=== PATIENT | male | born 1985 | race Caucasian/White ===

== ENCOUNTER 2020-09-18 09:09 | Outpatient (REF) | payer OTHER, SELFPAY | END 2020-09-18 09:10 | disposition home or self-care (01) | LOC: HO.LAB 09:09 | PROVIDERS: Visit Provider Internal Medicine | DX: Z20.828 Contact with and (suspected) exposure to other viral communicable diseases (principal) | CPT/HCPCS: C9803; U0003 ==

== ENCOUNTER → 2020-10-19 15:25 | Outpatient (BNV) | payer OTHER, SELFPAY | PROVIDERS: PCP Internal Medicine; Visit Provider Internal Medicine Medical Oncology | DX: D45 Polycythemia vera (principal) | CPT/HCPCS: 99212; 99213 ==

== ENCOUNTER 2020-12-31 11:31 | Outpatient (REF) | payer OTHER, SELFPAY ==
[2020-12-31 14:57] LABS: Eosinophils Absolute Auto 0.1 X10*3/uL (0.0-0.4); Hemoglobin 14.7 g/dl (14.0-18.0); Lymphocytes Percent Auto 29.9 % (20-40); MANUAL DIFF FLAG SCAN; SCAN SMEAR FLAG 1
[2020-12-31 14:59] LABS: Basophils Percent Auto 0.3 % (0-2); Eosinophils Percent Auto 1.5 % (0-4); Hematocrit 45.6 % (42-52); Imm Gran Abs Auto 0.04 X10*3/uL (0.00-0.03); Imm Gran Pct Auto 0.5 % (0.0-0.4); Lymphocytes Absolute Auto 2.3 X10*3/uL (1.2-4.9); Mean Corpuscular HGB Conc 32.2 g/dl (31.0-36.0); Mean Corpuscular Hemoglobin 25.3 pg (27.0-33.0); Mean Corpuscular Volume 78.4 fL (80-98); Mean Platelet Volume 12.6 fL (9.4-12.4); Monocytes Absolute Auto 0.6 X10*3/uL (0.1-1.2); Monocytes Percent Auto 7.2 % (2-11); Neutrophils Absolute Auto 4.7 X10*3/uL (2.0-8.3); Neutrophils Percent Auto 60.6 % (45-73); Platelet Count 229 X10*3/uL (160-400); Red Blood Count 5.82 X10*6/uL (4.60-5.80); Red Cell Distribution Width 15.8 % (11.0-16.0); White Blood Count 7.8 X10*3/uL (4.8-10.8)
[2020-12-31 15:00] LABS: PLT ABN DIST 1
[2020-12-31 15:25] LABS: Anion Gap 16 (12-20); Blood Urea Nitrogen 11 mg/dL (9-16); Calcium 9.6 mg/dL (8.4-10.2); Carbon Dioxide 22 mmol/L (22-29); Chloride 107 mmol/L (96-108); Cholesterol 213 mg/dL; Estimated Glomerular Filt Rate > 60; Glucose Random 118 mg/dL (60-115); HDL Cholesterol 44 mg/dL; Iron 58 mcg/dL (45-160); LDL Cholesterol Calculated 118 mg/dl; Percent Iron Saturation 13 % (15-50); Potassium 4.4 mmol/L (3.3-5.1); Sodium 141 mmol/L (135-145); Total Iron Binding Capacity 437 mcg/dL (228-428); Triglycerides 258 mg/dL; Unsaturated Iron Binding 379 ug/dL
[2020-12-31 15:47] LABS: Ferritin 8 ng/mL (20-250)
[2021-01-01 09:39] LABS: Vitamin B12 238 pg/mL (200-900)
[2021-01-04 11:27] LABS: Vitamin D 25-OH, D2 <4 ng/mL; Vitamin D 25-OH, D3 20 ng/mL; Vitamin D 25-OH, Total 20 ng/mL (30-100)
== END 2020-12-31 11:32 | disposition home or self-care (01) ==
LOC: HO.HMGCLDS 11:31
PROVIDERS: PCP Internal Medicine; Visit Provider Internal Medicine
DX: G43.909 Migraine, unspecified, not intractable, without status migrainosus (principal); J45.909 Unspecified asthma, uncomplicated; R53.83 Other fatigue; R10.13 Epigastric pain; K58.9 Irritable bowel syndrome, unspecified
CPT/HCPCS: 36415; 80048; 80061; 82306; 82607; 82728; 83540; 85025

== ENCOUNTER 2021-07-08 15:31 | Outpatient (REF) | payer OTHER, SELFPAY | END 2021-07-08 15:32 | disposition home or self-care (01) | LOC: HO.LAB 15:31 | PROVIDERS: PCP Internal Medicine; Visit Provider Internal Medicine | DX: Z20.822 Contact with and (suspected) exposure to COVID-19 (principal) | CPT/HCPCS: C9803; U0003; U0005 ==

== ENCOUNTER 2021-07-14 15:23 | Outpatient (REF) | payer OTHER, SELFPAY ==
[2021-07-14 17:42] LABS: Influenza A PCR NEGATIVE (Negative); Influenza B PCR NEGATIVE (Negative); Resp Syncy Virus RNA Qual PCR NEGATIVE (Negative); SARS COV2 PCR INHOUSE NEGATIVE (Negative)
== END 2021-07-14 15:24 | disposition home or self-care (01) ==
LOC: HO.LAB 15:23
PROVIDERS: Visit Provider Internal Medicine
DX: Z20.822 Contact with and (suspected) exposure to COVID-19 (principal); R43.9 Unspecified disturbances of smell and taste
CPT/HCPCS: 0241U; 36415

== ENCOUNTER 2021-12-19 11:36 | Emergency (ER) | payer OTHER, SELFPAY ==
--- NOTE | ~2021-12-19 | XR_ITS ---
EXAMINATION: XR SHOULDER, RIGHT CLINICAL INFORMATION: Shoulder injury COMPARISON: CT 05/14/2017 TECHNIQUE: Three views of the right shoulder. FINDINGS: No visible acute fracture or dislocation.. Glenohumeral and acromioclavicular alignment is anatomic with normal joint space. No abnormal soft tissue calcifications. XR/XR shoulder RT min 2V IMPRESSION: No evidence of acute osseous abnormality.
[2021-12-19 12:47] VITALS: BP 137/97; PULSE 72; RESP 18; TEMP 37; O2SAT 99; BMI 29.1
--- NOTE | 2021-12-19 13:42 | ED.EXTPRO ---
HPI - Extremity Problem General Chief complaint: Extremity Injury, Upper Stated complaint: shoulder injury - work related Time Seen by Provider: 12/19/21 14:19 Source: patient Mode of arrival: ambulatory Limitations: no limitations History of Present Illness HPI Narrative: 36-year-old healthy male presents to ED for right shoulder pain. Patient states he was throwing a trash can full of garbage and then he heard a pop in his right shoulder pain. Patient states this occurred around 07:30. Denies any blunt trauma to right lower extremity pain. Patient states able to move right upper extremity but with pain. Patient states no swelling, redness, fever, chills, tingling, or numbness. Related Data Home Medications Medication Instructions Recorded Confirmed flu vac qs 2019(4 yr up)CD(PF) ml IM 08/13/20 02/18/21 pneumococcal 23-nikki ps vaccine 25 IM 08/13/20 02/18/21 mcg/0.5 mL injection syringe amitriptyline 100 mg tablet 100 mg PO BEDTIME 11/19/20 04/19/21 Previous Rx's Medication Instructions Recorded cholecalciferol (vitamin D3) 25 25 mcg PO DAILY 90 Days #90 cap 01/10/21 mcg (1,000 unit) capsule ferrous sulfate 324 mg (65 mg 324 mg PO Q OTHER DAY 90 Days #45 01/10/21 iron) tablet,delayed release tab Blood pressure machine #1 ea 02/18/21 albuterol sulfate 90 mcg/actuation 2 puff PO Q4H PRN 30 Days #8.5 g 02/18/21 aerosol inhaler sumatriptan succinate 50 mg tablet 50 mg PO BID PRN 90 Days #30 tab 02/18/21 fluticasone 250 mcg-salmeterol 50 1 inh INHALATION BID 30 Days #60 ea 05/12/21 mcg/dose blistr powdr for inhalation (Wixela Inhub) montelukast 10 mg tablet 10 mg PO DAILY 90 Days #90 tab 05/12/21 omeprazole 20 mg capsule,delayed 20 mg PO DAILY 90 Days #90 cap 05/12/21 release cyclobenzaprine 10 mg tablet 10 mg PO TID PRN #21 tab 12/19/21 naproxen 500 mg tablet 500 mg PO BID PRN #20 tab 12/19/21 Allergies Allergy/AdvReac Type Severity Reaction Status Date / Time No Known Allergies Allergy Verified 07/14/21 13:32 Review of Systems Review of Systems: Right shoulder pain. Hearing popping shoulder Yes all other systems are reviewed and are negative [facility] Past Medical History Medical History Asthma Dyspepsia IBS (irritable bowel syndrome) Migraine headache Polycythemia vera Surgical History History of ear surgery Family History Family History Father HTN (hypertension) Mother Cancer Diabetes mellitus Maternal Grandmother Pancreatic cancer Paternal Grandfather Polycythemia Sister No problems noted. Sister No problems noted. Daughter No problems noted. Social History Social History Alcohol intake: current Alcohol intake frequency: holidays/special occasions only Advance Directives: No Advance Directives Information Provided: No Physical Exam Vital Signs: Vital Signs: Last Vital Signs Temp 98.6 F 12/19/21 12:47 Pulse 72 12/19/21 12:47 Resp 18 12/19/21 12:47 BP 137/97 H 12/19/21 12:47 Pulse Ox 99 12/19/21 12:47 BMI result Body Mass Index 29.1 Const: General: cooperative, healthy appearing, comfortable, no acute distress, well developed, alert and awake Orientation/consciousness: patient oriented x3 HENMT: Head: Yes normal to inspection, Yes No palpable skull fracture present, Yes normocephalic and Yes atraumatic Eyes: General: appearance normal, both eyes and all related structures Neck: Neck: Yes normal visual inspection, Yes full ROM, Yes no lymphadenopathy, Yes no meningeal signs, Yes trachea midline, Yes supple, No anterior neck swelling and No tender Chest: Chest palpation & inspection: normal inspection of the chest and normal palpation of entire chest wall Resp: Effort & Inspection: normal respiratory effort and able to speak in complete sentences Auscultation: clear to auscultation bilaterally Cardio: Jugular venous distension: no JVD Heart sounds: S1 normal heart sound present and S2 normal heart sound present GI: Inspection: Yes normal to inspection and No abdominal wall ecchymosis Palpation (GI): Soft to palpation, not firm, nontender, no guarding and not rigid : General: No CVA tenderness and Yes no CVA tenderness Back/Spine/Pelvis: Back: no CVA tenderness, No CVA tenderness and No back tenderness Skin: General skin exam: no rashes or lesions noted and elasticity normal Neuro: General: patient oriented x3, gait normal and no meningeal signs Cranial nerves: Yes CN's II-XII intact bilaterally Extrem: General: Yes normal to inspection and Yes full ROM Shoulder/upper arm images: 1. Positive for tenderness on palpation and range of motion. Patient has complete range of motion of shoulder. Negative for any swelling, erythema, ecchymosis, or deformity. Right upper extremity motor/neuro/vascular exam intact Psych: Appearance: grossly normal, well kempt and not disheveled Course Course Course Narrative: Patient sent for shoulder x-ray. Reevaluation(s) Reevaluation #1: X-ray normal negative for any fracture or dislocation. Patient discharged with pain medication and muscle relaxer told to follow up with her connection. Time: 14:20 MDM - Extremity (Nontraumatic) MDM Narrative Medical decision making narrative: Shoulder sprain Discharge Plan Discharge Clinical Impression: Shoulder sprain Patient Disposition: Home, Self-Care Instructions: Shoulder Sprain (ED) Additional Instructions: Shoulder x-ray came back normal and negative for any fracture or dislocation. Due to you hearing popping sound will recommend follow-up with primary care provider for MRI if indicated to evaluate for possible shoulder muscle tear. Due to also follow up with work connection. Return to the ED immediately for any right upper extremity swelling, redness, bluish black discoloration, decreased range of motion, coolness, fever, chills, tingling, paralysis, or any other concerning symptoms. Prescriptions: New naproxen 500 mg tablet 500 mg PO BID PRN (Reason: pain) Qty: 20 0RF cyclobenzaprine 10 mg tablet 10 mg PO TID PRN (Reason: muscle spasm) Qty: 21 0RF Rx Instructions: side effect is drowsiness. Do not take at work or while driving. No Action ferrous sulfate 324 mg (65 mg iron) tablet,delayed release (DR/EC) 324 mg PO Q OTHER DAY 90 Days Qty: 45 0RF cholecalciferol (vitamin D3) 25 mcg (1,000 unit) capsule 25 mcg PO DAILY 90 Days Qty: 90 0RF (DME) Blood pressure machine Regular See Rx Instructions .Route .MEDSUPPLY Qty: 1 0RF Rx Instructions: As directed omeprazole 20 mg capsule,delayed release(DR/EC) 20 mg PO DAILY 90 Days Qty: 90 0RF montelukast 10 mg tablet 10 mg PO DAILY 90 Days Qty: 90 0RF fluticasone propion-salmeterol [Wixela Inhub] 250-50 mcg/dose blister with device 1 inh inhalation BID 30 Days Qty: 60 1RF Flucelvax Quad [id number] (PF) 60 mcg (15 mcg x 4)/0.5 mL syringe IM 0RF Pneumovax-23 25 mcg/0.5 mL syringe IM 0RF amitriptyline 100 mg tablet 100 mg PO BEDTIME 0RF sumatriptan succinate 50 mg tablet 50 mg PO BID PRN (Reason: Headache) 90 Days Qty: 30 0RF albuterol sulfate 90 mcg/actuation HFA aerosol inhaler 2 puff PO Q4H PRN (Reason: Shortness Of Breath) 30 Days Qty: 8.5 4RF Referrals: [facility] [Provider Group] - 2 days ([place] pain from work.) Stand Alone Forms: Work/School Release Interventions: ED Discharge Assessment Last Done: 12/19/21 14:31 Discharge Date/Time: 12/19/21 14:31 Print Language: Kazakh
== END 2021-12-19 14:31 | disposition home or self-care (01) ==
PROVIDERS: Emergency Provider Emergency Medicine; PCP Internal Medicine
DX: S43.401A Unspecified sprain of right shoulder joint, initial encounter (principal); X50.0XXA Overexertion from strenuous movement or load, initial encounter; Y93.89 Activity, other specified; Y92.213 High school as the place of occurrence of the external cause; Y99.0 Civilian activity done for income or pay
CPT/HCPCS: 73030; 99283

== ENCOUNTER 2022-08-08 08:34 | Outpatient (REF) | payer OTHER, SELFPAY ==
[2022-08-08 11:29] LABS: MANUAL DIFF FLAG NO
[2022-08-08 11:44] LABS: Basophils Percent Auto 0.3 % (0-2); Eosinophils Absolute Auto 0.1 X10*3/uL (0.0-0.4); Eosinophils Percent Auto 1.9 % (0-4); Hemoglobin 16.9 g/dl (14.0-18.0); Imm Gran Abs Auto 0.04 X10*3/uL (0.00-0.03); Imm Gran Pct Auto 0.6 % (0.0-0.4); Lymphocytes Absolute Auto 2.3 X10*3/uL (1.2-4.9); Lymphocytes Percent Auto 36.2 % (20-40); Mean Corpuscular HGB Conc 34.5 g/dl (31.0-36.0); Mean Corpuscular Hemoglobin 29.7 pg (27.0-33.0); Mean Corpuscular Volume 86.1 fL (80.0-98.0); Mean Platelet Volume 12.2 fL (9.4-12.4); Monocytes Absolute Auto 0.6 X10*3/uL (0.1-1.2); Monocytes Percent Auto 9.4 % (2-11); Neutrophils Absolute Auto 3.3 x10*3/uL (2.0-8.3); Neutrophils Percent Auto 51.6 % (45-73); Platelet Count 246 X10*3/uL (160-400); Red Blood Count 5.69 X10*6/uL (4.60-5.80); White Blood Count 6.4 X10*3/uL (4.8-10.8)
[2022-08-08 12:13] LABS: Alanine Aminotransferase 22 U/L (0-40); Albumin Level 4.7 g/dL (3.5-5.0); Alkaline Phosphatase 43 U/L (39-117); Anion Gap 20 (12-20); Aspartate Amino Transferase 24 U/L (5-37); Bilirubin Total 0.6 mg/dL (0.0-1.0); Blood Urea Nitrogen 11 mg/dL (9-16); Calcium 9.9 mg/dL (8.4-10.2); Carbon Dioxide 22 mmol/L (22-29); Chloride 104 mmol/L (96-108); Cholesterol 219 mg/dL; Estimated Glomerular Filt Rate > 60; Glucose Fasting 130 mg/dL (60-99); HDL Cholesterol 51 mg/dL; LDL Cholesterol Calculated 104 mg/dl; Potassium 4.7 mmol/L (3.3-5.1); Sodium 141 mmol/L (135-145); Total Protein 7.4 g/dL (6.5-8.0); Triglycerides 320 mg/dL
[2022-08-08 12:18] LABS: TSH reflex Free T4 1.18 uIU/mL (0.32-4.0)
== END 2022-08-08 08:35 | disposition home or self-care (01) ==
LOC: HO.HMGCLDS 08:34
PROVIDERS: PCP Internal Medicine; Visit Provider Internal Medicine
DX: Z00.01 Encounter for general adult medical examination with abnormal findings (principal); R10.13 Epigastric pain; K58.9 Irritable bowel syndrome, unspecified; J45.40 Moderate persistent asthma, uncomplicated; G43.C1 Periodic headache syndromes in child or adult, intractable; E66.3 Overweight
CPT/HCPCS: 36415; 80053; 80061; 84443; 85025

== ENCOUNTER 2022-11-28 08:00 | Outpatient (REF) | payer OTHER, SELFPAY ==
[2022-11-28 11:29] LABS: MANUAL DIFF FLAG NO
[2022-11-28 11:40] LABS: Basophils Percent Auto 0.4 % (0-2); Eosinophils Absolute Auto 0.2 X10*3/uL (0.0-0.4); Hematocrit 50.8 % (42.0-52.0); Hemoglobin 17.5 g/dl (14.0-18.0); Imm Gran Abs Auto 0.05 X10*3/uL (0.00-0.03); Imm Gran Pct Auto 0.7 % (0.0-0.4); Lymphocytes Absolute Auto 2.4 X10*3/uL (1.2-4.9); Lymphocytes Percent Auto 31.4 % (20-40); Mean Corpuscular HGB Conc 34.4 g/dl (31.0-36.0); Mean Corpuscular Hemoglobin 30.2 pg (27.0-33.0); Mean Corpuscular Volume 87.7 fL (80.0-98.0); Mean Platelet Volume 12.3 fL (9.4-12.4); Monocytes Absolute Auto 0.7 X10*3/uL (0.1-1.2); Monocytes Percent Auto 8.9 % (2-11); Neutrophils Absolute Auto 4.3 x10*3/uL (2.0-8.3); Neutrophils Percent Auto 55.6 % (45-73); Platelet Count 222 X10*3/uL (160-400); Red Blood Count 5.79 X10*6/uL (4.60-5.80); Red Cell Distribution Width 12.3 % (11.0-16.0); White Blood Count 7.7 X10*3/uL (4.8-10.8)
== END 2022-11-28 08:01 | disposition home or self-care (01) ==
LOC: HO.HMGCLDS 08:00
PROVIDERS: PCP Internal Medicine; Visit Provider Internal Medicine
DX: R73.9 Hyperglycemia, unspecified (principal); J45.40 Moderate persistent asthma, uncomplicated; D45 Polycythemia vera; G43.909 Migraine, unspecified, not intractable, without status migrainosus
CPT/HCPCS: 36415; 85025

== ENCOUNTER 2022-12-21 08:07 | Outpatient (REF) | payer OTHER, SELFPAY ==
[2022-12-21 12:08] LABS: Estimated Average Glucose 105 mg/dL; Hemoglobin A1c % 5.3 %
[2022-12-21 12:29] LABS: Alanine Aminotransferase 23 U/L (0-40); Albumin Level 4.3 g/dL (3.5-5.0); Alkaline Phosphatase 38 U/L (39-117); Anion Gap 13 (12-20); Aspartate Amino Transferase 21 U/L (5-37); Bilirubin Total 1.2 mg/dL (0.0-1.0); Blood Urea Nitrogen 13 mg/dL (9-16); Carbon Dioxide 23 mmol/L (22-29); Chloride 107 mmol/L (96-108); Estimated Glomerular Filt Rate > 60; Glucose Fasting 131 mg/dL (60-99); Potassium 4.1 mmol/L (3.3-5.1); Sodium 139 mmol/L (135-145); Total Protein 6.7 g/dL (6.5-8.0)
== END 2022-12-21 08:08 | disposition home or self-care (01) ==
LOC: HO.HMGCLDS 08:07
PROVIDERS: PCP Internal Medicine; Visit Provider Internal Medicine
DX: D45 Polycythemia vera (principal); G43.909 Migraine, unspecified, not intractable, without status migrainosus; J45.40 Moderate persistent asthma, uncomplicated; R73.9 Hyperglycemia, unspecified
CPT/HCPCS: 36415; 80053; 83036

== ENCOUNTER 2023-06-04 14:38 | Outpatient (REF) | payer OTHER, SELFPAY ==
[2023-06-04 14:48] LABS: MANUAL DIFF FLAG NO
[2023-06-04 15:02] LABS: Basophils Percent Auto 0.3 % (0-2); Eosinophils Absolute Auto 0.4 X10*3/uL (0.0-0.4); Eosinophils Percent Auto 3.1 % (0-4); Hematocrit 47.6 % (42.0-52.0); Hemoglobin 16.7 g/dl (14.0-18.0); Imm Gran Abs Auto 0.05 X10*3/uL (0.00-0.03); Imm Gran Pct Auto 0.4 % (0.0-0.4); Lymphocytes Absolute Auto 3.1 X10*3/uL (1.2-4.9); Lymphocytes Percent Auto 26.4 % (20-40); Mean Corpuscular HGB Conc 35.1 g/dl (31.0-36.0); Mean Corpuscular Hemoglobin 30.4 pg (27.0-33.0); Mean Corpuscular Volume 86.7 fL (80.0-98.0); Mean Platelet Volume 11.6 fL (9.4-12.4); Monocytes Absolute Auto 0.8 X10*3/uL (0.1-1.2); Monocytes Percent Auto 6.7 % (2-11); Neutrophils Absolute Auto 7.3 x10*3/uL (2.0-8.3); Neutrophils Percent Auto 63.1 % (45-73); Platelet Count 290 X10*3/uL (160-400); Red Blood Count 5.49 X10*6/uL (4.60-5.80); Red Cell Distribution Width 12.9 % (11.0-16.0); White Blood Count 11.5 X10*3/uL (4.8-10.8)
[2023-06-05 01:57] LABS: Alanine Aminotransferase 28 U/L (0-40); Albumin Level 4.7 g/dL (3.5-5.0); Alkaline Phosphatase 45 U/L (39-117); Anion Gap 14 (12-20); Aspartate Amino Transferase 20 U/L (5-37); Bilirubin Direct 0.2 mg/dL (0.0-0.5); Bilirubin Total 0.5 mg/dL (0.0-1.0); Blood Urea Nitrogen 11 mg/dL (9-16); Calcium 9.6 mg/dL (8.4-10.2); Carbon Dioxide 23 mmol/L (22-29); Chloride 109 mmol/L (96-108); Estimated Glomerular Filt Rate 60; Glucose Random 114 mg/dL (60-115); Potassium 4.1 mmol/L (3.3-5.1); Sodium 142 mmol/L (135-145); Total Protein 7.5 g/dL (6.5-8.0)
[2023-06-08 13:18] LABS: Anti Nuclear Antibody Screen NEGATIVE (NEGATIVE)
== END 2023-06-04 14:39 | disposition home or self-care (01) ==
LOC: HO.LAB 14:38
PROVIDERS: Visit Provider Physician Assistant Medical
DX: L93.0 Discoid lupus erythematosus (principal)
CPT/HCPCS: 36415; 80048; 80076; 85025; 86038

== ENCOUNTER 2023-06-06 14:48 | Outpatient (AMB) | payer OTHER, SELFPAY ==
--- NOTE | 2023-06-06 14:52 | A.OFFPC_ITS ---
Vital Signs 06/06/23 14:53 Height 5 ft 5 in Weight 176 lb 4 oz BMI 29.3 BP 142/94 H Blood Pressure Location Lt brachial Position Sitting Pulse 101 H Pulse Source Pulse Oximeter Pulse Oximetry (%) 98 Oxygen Delivery Method Room Air Intake Visit Reasons: 3m follow up Allergies No Known Allergies Allergy (Verified 06/06/23 14:53) Medication List - Last Reconciled 06/06/23 by Linda Singh MD albuterol sulfate 90 mcg/actuation (Ventolin HFA) 1 inh inhalation QID PRN 30 days amitriptyline 100 mg PO BEDTIME 90 days [Blood pressure machine As directed] hydrochlorothiazide 25 mg PO DAILY 90 days hydrocortisone 2.5% 1 appl topical BID PRN 30 days mometasone-formoterol 200-5 mcg/actuation (Dulera) 2 puffs inhalation Q12H 30 days montelukast 10 mg PO DAILY 90 days omeprazole 20 mg PO DAILY 90 days sumatriptan succinate 50 mg PO BID PRN 90 days Tobacco use date assessed: 06/06/23 Dental Screening Dental Screen Date: 06/06/23 Did you have a dental visit in the last 12 months?: Yes Did you have a dental problem in the last 6 months where you did not have access to dental care?: No Was dental information given to patient?: No HPI 3m follow up HPI Details Patient is a 38-year-old male came in today for his regular follow-up appointment Blood pressure continued to be elevated it was 172 systolic on 14th of this month when he visited Hematology for the management of polycythemia vera Today it is 142/94 with heart rate of 101. Currently patient is taking hydrochlorothiazide 25 mg, I am stopping that he is to start taking atenolol chlorthalidone 50-25 mg daily. Patient is to continue monitoring blood pressure at home and keep a log He will return in 7 days for follow-up. Asthma is stable patient is on montelukast and Dulera. Headaches are stable with amitriptyline 100 mg at night and sumatriptan as needed. GERD is stable with omeprazole. [facility] Medical History Asthma Dyspepsia IBS (irritable bowel syndrome) Migraine headache Polycythemia vera Surgical History History of ear surgery Family History Father HTN (hypertension) Mother Cancer Diabetes mellitus Maternal Grandmother Pancreatic cancer Paternal Grandfather Polycythemia Sister No problems noted. Sister No problems noted. Daughter No problems noted. Social History Household Members: Spouse Housing: Apartment Are you a primary personal care service provider to a significant other at home: No Do you presently have visiting nurse or other home services: No Alcohol intake: current Alcohol intake frequency: holidays/special occasions only Patient Tobacco Use Status: Never used Tobacco e-Cigarette/Vaping Use: Never Used Second Hand Smoke Exposure: No service: No Current occupational status: employed Cognitive needs: No Hearing needs: No Vision needs: No Questionnaire PHQ-9 Over the last 2 weeks, how often have you been bothered by any of the following problems? 1. Little interest or pleasure in doing things: not at all 2. Feeling down, depressed, or hopeless: not at all 3. Trouble falling or staying asleep, or sleeping too much: several days 4. Feeling tired or having little energy: not at all 5. Poor appetite or overeating: not at all 6. Feeling bad about yourself - or that you are a failure or have let yourself or your family down: not at all 7. Trouble concentrating on things, such as reading the newspaper or watching television: not at all 8. Moving or speaking so slowly that other people could have noticed. Or the opposite - being so fidgety or restless that you have been moving around a lot more than usual: not at all 9. Thoughts that you would be better off or of hurting yourself in some way: not at all Total score: 1 Depression Screening Interpretation: Negative 12723 - PHQ-9 Billing: Yes Source: Developed by Drs. Agustin Lemus, Joslyn Bailey, Lionel Brothers and colleagues, with an educational juan daniel from [employer]. Thrive Questionnaire Date Thrive assessed: 02/01/22 AUDIT C Alcohol Use Questionnaire (AUDIT-C) 1. How often do you have a drink containing alcohol?: Monthly or less 2. How many drinks containing alcohol do you have on a typical day when you are drinking?: 1 or 2 3. How often do you have six or more drinks on one occasion?: Never Total Score: 1 Score Reviewed/Action Taken: Yes BONNIE-7 AMB Questionnaire BONNIE-7 Date BONNIE - 7 assessed: 02/01/22 Feeling nervous, anxious, or on edge: 0 = Not at all Not being able to stop or control worryin = Not at all Worrying too much about different things: 0 = Not at all Trouble relaxin = Not at all Being so restless that it is hard to sit still: 0 = Not at all Becoming easily annoyed or irritable: 0 = Not at all Feeling afraid as if something awful might happen: 0 = Not at all Total BONNIE-7 score (0-4 normal; 5-9 mild; 10-14 moderate; 15-21 severe): 0 Source: Developed by Drs. Agustin Lemus, Joslyn Bailey, Lionel Brothers and colleagues, with an educational juan daniel from [employer]. BONNIE-7 Assessment Billing BONNIE-7 Assessment Tool: BONNIE-7 Assessment 86818 Review of Systems Const Denies chills and Denies fever(s) ENT Denies epistaxis and Denies nasal discharge Card Denies chest pain Resp Denies chest congestion, Denies cough and Denies hemoptysis GI Denies diarrhea and Denies nausea Skin/Breast Denies rash Neuro Reports no additional complaints Psych Reports no additional complaints Endo Reports no additional complaints Physical exam (Primary Care) Vital Signs: Last Vital Signs Pulse 101 H 06/06/23 14:53 BP 142/94 H 06/06/23 14:53 Pulse Ox 98 06/06/23 14:53 Oxygen Delivery Method Room Air 06/06/23 14:53 BMI result Body Mass Index 29.3 Tobacco/Smoking Status: Tobacco use Status Tobacco use date assessed 06/06/23 06/06/23 14:55 Patient Tobacco Use Status Never used Tobacco 06/06/23 14:55 e-Cigarette/Vaping Use Never Used 06/06/23 14:55 Depression Screening Interpretation: Negative Thrive Assessment: Date of Thrive Assessment Date Thrive assessed 02/01/22 06/06/23 14:55 Const General: cooperative, comfortable and no acute distress Orientation/consciousness: patient oriented x3 HENMT Head: Yes normocephalic Eyes General: appearance normal, both eyes and all related structures Neck Neck: Yes supple Resp Effort & Inspection: normal respiratory effort, no cough and no stridor Cardio Rhythm: regular rhythm Heart sounds: S1 normal heart sound present and S2 normal heart sound present Skin General skin exam: turgor normal Neuro General: patient oriented x3, tone normal and moves all extremities Extrem Right lower extremity: no edema Left lower extremity: no edema Assessment and Plan Assessment & Plan (1) Uncontrolled hypertension: Code(s): I10 - Essential (primary) hypertension (2) Asthma, moderate persistent: Code(s): J45.40 - Moderate persistent asthma, uncomplicated (3) Polycythemia vera: Code(s): D45 - Polycythemia vera (4) Migraine headache: Code(s): G43.909 - Migraine, unspecified, not intractable, without status migrainosus Qualifiers: Migraine type: periodic headache syndrome Intractability: intractable Qualified Code(s): G43.C1 - Periodic headache syndromes in child or adult, intractable Plan Patient is a 38-year-old male came in today for his regular follow-up appointment Blood pressure continued to be elevated it was 172 systolic on 14th of this month when he visited Hematology for the management of polycythemia vera Today it is 142/94 with heart rate of 101. Currently patient is taking hydrochlorothiazide 25 mg, I am stopping that he is to start taking atenolol chlorthalidone 50-25 mg daily. Patient is to continue monitoring blood pressure at home and keep a log He will return in 7 days for follow-up. Asthma is stable patient is on montelukast and Dulera. Headaches are stable with amitriptyline 100 mg at night and sumatriptan as needed. GERD is stable with omeprazole. Medications: New atenolol-chlorthalidone 50-25 mg 1 tab PO DAILY 30 tabs 0RF Refilled mometasone-formoterol 200-5 mcg/actuation (Dulera) 2 puffs inhalation Q12H 8.8 grams 5RF 30 days Discontinued hydrochlorothiazide Discontinued Reason: Doctor's Order 25 mg PO DAILY 90 days 90 tabs 0RF Coding Level of Care Code Est Pt Level 4 (92588) Diagnoses Uncontrolled hypertension I10 Asthma, moderate persistent J45.40 Polycythemia vera D45 Migraine headache G43.C1 Migraine type: periodic headache syndrome Intractability: intractable Additional Codes BONNIE-7 Assessment Billing - BONNIE-7 Assessment Tool: BONNIE-7 Assessment [id number] ([id number])
[2023-06-06 14:53] VITALS: BP 142/94; PULSE 101; O2SAT 98; BMI 29.3
== END 2023-06-06 16:53 | disposition home or self-care (01) ==
PROVIDERS: Visit Provider Internal Medicine
DX: I10 Essential (primary) hypertension (principal); J45.40 Moderate persistent asthma, uncomplicated; D45 Polycythemia vera; G43.C1 Periodic headache syndromes in child or adult, intractable
CPT/HCPCS: 99214

== ENCOUNTER 2023-06-15 09:58 | Outpatient (AMB) | payer OTHER, SELFPAY ==
[2023-06-15 10:00] VITALS: BP 124/86; PULSE 69; O2SAT 97; BMI 29.1
--- NOTE | 2023-06-15 10:00 | MHC.PC.OV ---
Vital Signs 06/15/23 10:00 Height 5 ft 5 in Weight 175 lb 2 oz BMI 29.1 BP 124/86 Blood Pressure Location Rt brachial Position Sitting Pulse 69 Pulse Source Pulse Oximeter Pulse Oximetry (%) 97 Oxygen Delivery Method Room Air Intake Visit Reasons: 1 week follow up Allergies No Known Allergies Allergy (Verified 06/15/23 10:00) Medication List - Last Reconciled 06/15/23 by Linda Singh MD albuterol sulfate 90 mcg/actuation (Ventolin HFA) 1 inh inhalation QID PRN 30 days amitriptyline 100 mg PO BEDTIME 90 days atenolol-chlorthalidone 50-25 mg 1 tab PO DAILY [Blood pressure machine As directed] hydrocortisone 2.5% 1 appl topical BID PRN 30 days mometasone-formoterol 200-5 mcg/actuation (Dulera) 2 puffs inhalation Q12H 30 days montelukast 10 mg PO DAILY 90 days omeprazole 20 mg PO DAILY 90 days sumatriptan succinate 50 mg PO BID PRN 90 days Tobacco use date assessed: 06/15/23 Dental Screening Dental Screen Date: 06/15/23 Did you have a dental visit in the last 12 months?: Yes Did you have a dental problem in the last 6 months where you did not have access to dental care?: No Was dental information given to patient?: No HPI 1 week follow up HPI Details Patient is a 38-year-old gentleman came in today to have a follow-up on his blood pressure Patient blood pressure was high early this month I changed his medication to atenolol chlorthalidone 50-25 mg blood pressure is very well controlled now Patient is tolerating medication no side effects. He has a follow-up appointment with me in August labs done this month reviewed again. Patient offer no other complaints today. [facility] Medical History Asthma Dyspepsia IBS (irritable bowel syndrome) Migraine headache Polycythemia vera Surgical History History of ear surgery Family History Father HTN (hypertension) Mother Cancer Diabetes mellitus Maternal Grandmother Pancreatic cancer Paternal Grandfather Polycythemia Sister No problems noted. Sister No problems noted. Daughter No problems noted. Social History Household Members: Spouse Housing: Apartment Are you a primary clinical care manager to a significant other at home: No Do you presently have visiting nurse or other home services: No Alcohol intake: current Alcohol intake frequency: holidays/special occasions only Patient Tobacco Use Status: Never used Tobacco e-Cigarette/Vaping Use: Never Used Second Hand Smoke Exposure: No service: No Current occupational status: employed Cognitive needs: No Hearing needs: No Vision needs: No Questionnaire PHQ-9 Over the last 2 weeks, how often have you been bothered by any of the following problems? 1. Little interest or pleasure in doing things: not at all 2. Feeling down, depressed, or hopeless: not at all 3. Trouble falling or staying asleep, or sleeping too much: several days 4. Feeling tired or having little energy: not at all 5. Poor appetite or overeating: not at all 6. Feeling bad about yourself - or that you are a failure or have let yourself or your family down: not at all 7. Trouble concentrating on things, such as reading the newspaper or watching television: not at all 8. Moving or speaking so slowly that other people could have noticed. Or the opposite - being so fidgety or restless that you have been moving around a lot more than usual: not at all 9. Thoughts that you would be better off or of hurting yourself in some way: not at all Total score: 1 Depression Screening Interpretation: Negative 50328 - PHQ-9 Billing: Yes Source: Developed by Drs. Agustin Lemus, Joslyn Bailey, Lionel Brothers and colleagues, with an educational juan daniel from [employer]. Thrive Questionnaire Date Thrive assessed: 02/01/22 AUDIT C Alcohol Use Questionnaire (AUDIT-C) 1. How often do you have a drink containing alcohol?: 2-4 times a month 2. How many drinks containing alcohol do you have on a typical day when you are drinking?: 1 or 2 3. How often do you have six or more drinks on one occasion?: Never Total Score: 2 Score Reviewed/Action Taken: Yes BONNIE-7 AMB Questionnaire BONNIE-7 Date BONNIE - 7 assessed: 02/01/22 Source: Developed by Drs. Agustin Lemus, Joslyn Bailey, Lionel [employer] and colleagues, with an educational juan daniel from [employer]. Review of Systems Const Denies chills and Denies fever(s) ENT Denies epistaxis and Denies nasal discharge Card Denies chest pain Resp Denies chest congestion, Denies cough and Denies hemoptysis GI Denies diarrhea and Denies nausea Skin/Breast Denies rash Neuro Reports no additional complaints Psych Reports no additional complaints Endo Reports no additional complaints Physical exam (Primary Care) Vital Signs: Last Vital Signs Pulse 69 06/15/23 10:00 BP 124/86 06/15/23 10:00 Pulse Ox 97 06/15/23 10:00 Oxygen Delivery Method Room Air 06/15/23 10:00 BMI result Body Mass Index 29.1 Tobacco/Smoking Status: Tobacco use Status Tobacco use date assessed 06/15/23 06/15/23 10:01 Patient Tobacco Use Status Never used Tobacco 06/15/23 10:01 e-Cigarette/Vaping Use Never Used 06/15/23 10:01 Depression Screening Interpretation: Negative Thrive Assessment: Date of Thrive Assessment Date Thrive assessed 02/01/22 06/15/23 10:01 Const General: cooperative, comfortable and no acute distress Orientation/consciousness: patient oriented x3 HENMT Head: Yes normocephalic Eyes General: appearance normal, both eyes and all related structures Neck Neck: Yes supple Resp Effort & Inspection: normal respiratory effort, no cough and no stridor Cardio Rhythm: regular rhythm Heart sounds: S1 normal heart sound present and S2 normal heart sound present Skin General skin exam: turgor normal Neuro General: patient oriented x3, tone normal and moves all extremities Extrem Right lower extremity: no edema Left lower extremity: no edema Assessment and Plan Assessment & Plan (1) Hypertension, essential: Code(s): I10 - Essential (primary) hypertension Plan Patient is a 38-year-old gentleman came in today to have a follow-up on his blood pressure Patient blood pressure was high early this month I changed his medication to atenolol chlorthalidone 50-25 mg blood pressure is very well controlled now Patient is tolerating medication no side effects. He has a follow-up appointment with me in August labs done this month reviewed again. Patient offer no other complaints today. Medications: Refilled atenolol-chlorthalidone 50-25 mg 1 tab PO DAILY 90 tabs 0RF Coding Level of Care Code Est Pt Level 3 (60816) Diagnoses Hypertension, essential I10
== END 2023-06-15 11:36 | disposition home or self-care (01) ==
PROVIDERS: PCP Internal Medicine; Visit Provider Internal Medicine
DX: I10 Essential (primary) hypertension (principal)
CPT/HCPCS: 99213

== ENCOUNTER 2023-09-07 15:01 | Outpatient (AMB) | payer OTHER, SELFPAY ==
[2023-09-07 15:10] VITALS: BP 126/82; PULSE 86; O2SAT 96; BMI 29.4
--- NOTE | 2023-09-07 15:10 | MHC.PC.OV ---
Vital Signs 09/07/23 15:10 Height 5 ft 5 in Weight 176 lb 8 oz BMI 29.4 BP 126/82 Blood Pressure Location Rt brachial Position Sitting Pulse 86 Pulse Source Pulse Oximeter Pulse Oximetry (%) 96 Oxygen Delivery Method Room Air Intake Visit Reasons: 3 Month follow up Allergies No Known Allergies Allergy (Verified 09/07/23 15:11) Medication List - Last Reconciled 09/07/23 by Linda Singh MD albuterol sulfate 90 mcg/actuation (Ventolin HFA) 1 inh inhalation QID PRN 30 days amitriptyline 100 mg PO BEDTIME 90 days atenolol-chlorthalidone 50-25 mg 1 tab PO DAILY [Blood pressure machine As directed] hydrocortisone 2.5% 1 appl topical BID PRN 30 days mometasone-formoterol 200-5 mcg/actuation (Dulera) 2 puffs inhalation Q12H 30 days montelukast 10 mg PO DAILY 90 days omeprazole 20 mg PO DAILY 90 days sumatriptan succinate 50 mg PO BID PRN 90 days Tobacco use date assessed: 09/07/23 Dental Screening Dental Screen Date: 09/07/23 Did you have a dental visit in the last 12 months?: Yes Did you have a dental problem in the last 6 months where you did not have access to dental care?: No Was dental information given to patient?: Patient has dentist HPI 3 Month follow up HPI Details Patient is a 38-year-old male came in today for his regular follow-up appointment Hypertension: Blood pressure is well controlled patient is taking atenolol chlorthalidone 50-25 mg and is tolerating medication. Asthma is stable patient is on montelukast and Dulera. Headaches are stable with amitriptyline 100 mg at night and sumatriptan as needed. GERD is stable with omeprazole. Labs were done May of this year reviewed again. New set of lab order placed to be done in January before visit. BMI is elevated patient is trying to lose weight. [facility] Medical History Polycythemia vera Dyspepsia IBS (irritable bowel syndrome) Migraine headache Asthma Surgical History History of ear surgery Family History Father HTN (hypertension) Mother Cancer Diabetes mellitus Maternal Grandmother Pancreatic cancer Paternal Grandfather Polycythemia Sister No problems noted. Sister No problems noted. Daughter No problems noted. Social History Household Members: Spouse Housing: Apartment Are you a primary child care education coordinator to a significant other at home: No Do you presently have visiting nurse or other home services: No Alcohol intake: current Alcohol intake frequency: holidays/special occasions only Patient Tobacco Use Status: Never used Tobacco e-Cigarette/Vaping Use: Never Used Second Hand Smoke Exposure: No service: No Current occupational status: employed Cognitive needs: No Hearing needs: No Vision needs: No Questionnaire PHQ-9 Over the last 2 weeks, how often have you been bothered by any of the following problems? 1. Little interest or pleasure in doing things: not at all 2. Feeling down, depressed, or hopeless: not at all 3. Trouble falling or staying asleep, or sleeping too much: several days 4. Feeling tired or having little energy: several days 5. Poor appetite or overeating: not at all 6. Feeling bad about yourself - or that you are a failure or have let yourself or your family down: not at all 7. Trouble concentrating on things, such as reading the newspaper or watching television: not at all 8. Moving or speaking so slowly that other people could have noticed. Or the opposite - being so fidgety or restless that you have been moving around a lot more than usual: not at all 9. Thoughts that you would be better off or of hurting yourself in some way: not at all Total score: 2 Depression Screening Interpretation: Negative Depression Screening Done: Yes 97803 - PHQ-9 Billing: Yes Source: Developed by Drs. Agustin Lemus, Joslyn Bailey, Lionel Brothers and colleagues, with an educational juan daniel from [employer]. Thrive Questionnaire Date Thrive assessed: 02/01/22 AUDIT C Alcohol Use Questionnaire (AUDIT-C) 1. How often do you have a drink containing alcohol?: 2-4 times a month 2. How many drinks containing alcohol do you have on a typical day when you are drinking?: 1 or 2 3. How often do you have six or more drinks on one occasion?: Never Total Score: 2 Score Reviewed/Action Taken: Yes BONNIE-7 AMB Questionnaire BONNIE-7 Date BONNIE - 7 assessed: 02/01/22 Source: Developed by Drs. Agustin Lemus, Joslyn Bailey, Lionel Brothers and colleagues, with an educational juan daniel from [employer]. Review of Systems Const Denies chills and Denies fever(s) ENT Denies epistaxis and Denies nasal discharge Card Denies chest pain Resp Denies chest congestion, Denies cough and Denies hemoptysis GI Denies diarrhea and Denies nausea Skin/Breast Denies rash Neuro Reports no additional complaints Psych Reports no additional complaints Endo Reports no additional complaints Physical exam (Primary Care) Vital Signs: Last Vital Signs Pulse 86 09/07/23 15:10 BP 126/82 09/07/23 15:10 Pulse Ox 96 09/07/23 15:10 Oxygen Delivery Method Room Air 09/07/23 15:10 BMI result Body Mass Index 29.4 Tobacco/Smoking Status: Tobacco use Status Tobacco use date assessed 09/07/23 09/07/23 15:11 Patient Tobacco Use Status Never used Tobacco 09/07/23 15:11 e-Cigarette/Vaping Use Never Used 09/07/23 15:11 PHQ-9: PHQ-9 Score PHQ-9: Total score 2 09/07/23 15:31 Depression Screening Interpretation: Negative Thrive Assessment: Date of Thrive Assessment Date Thrive assessed 02/01/22 09/07/23 15:11 Const General: cooperative, comfortable and no acute distress Orientation/consciousness: patient oriented x3 HENHI Head: Yes normocephalic Eyes General: appearance normal, both eyes and all related structures Neck Neck: Yes supple Resp Effort & Inspection: normal respiratory effort, no cough and no stridor Cardio Rhythm: regular rhythm Heart sounds: S1 normal heart sound present and S2 normal heart sound present Skin General skin exam: turgor normal Neuro General: patient oriented x3, tone normal and moves all extremities Extrem Right lower extremity: no edema Left lower extremity: no edema Assessment and Plan Assessment & Plan (1) Hypertension, essential: Code(s): I10 - Essential (primary) hypertension (2) Migraine headache: Code(s): G43.909 - Migraine, unspecified, not intractable, without status migrainosus Qualifiers: Intractability: intractable Migraine type: periodic headache syndrome Qualified Code(s): G43.C1 - Periodic headache syndromes in child or adult, intractable (3) Asthma, moderate persistent: Code(s): J45.40 - Moderate persistent asthma, uncomplicated Qualifiers: Asthma complication type: uncomplicated Qualified Code(s): J45.40 - Moderate persistent asthma, uncomplicated (4) Dyspepsia: Code(s): R10.13 - Epigastric pain (5) Overweight (BMI 25.0-29.9): Code(s): E66.3 - Overweight (6) Leukocytosis: Code(s): D72.829 - Elevated white blood cell count, unspecified Qualifiers: Leukocytosis type: unspecified Qualified Code(s): D72.829 - Elevated white blood cell count, unspecified Plan Patient is a 38-year-old male came in today for his regular follow-up appointment Hypertension: Blood pressure is well controlled patient is taking atenolol chlorthalidone 50-25 mg and is tolerating medication. Asthma is stable patient is on montelukast and Dulera. Headaches are stable with amitriptyline 100 mg at night and sumatriptan as needed. GERD is stable with omeprazole. Labs were done May of this year reviewed again. New set of lab order placed to be done in January before visit. BMI is elevated patient is trying to lose weight. Orders: Orders Complete Blood Count Auto Diff Today D72.829 - Elevated white blood cell count, unspecified, E66.3 - Overweight, G43.909 - Migraine, unspecified, not intractable, without status migrainosus, I10 - Essential (primary) hypertension, J45.40 - Moderate persistent asthma, uncomplicated Lipid Panel Today D72.829 - Elevated white blood cell count, unspecified, E66.3 - Overweight, G43.909 - Migraine, unspecified, not intractable, without status migrainosus, I10 - Essential (primary) hypertension, J45.40 - Moderate persistent asthma, uncomplicated Comprehensive [place]. Panel Fast Today D72.829 - Elevated white blood cell count, unspecified, E66.3 - Overweight, G43.909 - Migraine, unspecified, not intractable, without status migrainosus, I10 - Essential (primary) hypertension, J45.40 - Moderate persistent asthma, uncomplicated Coding Level of Care Code Est Pt Level 4 (04882) Diagnoses Hypertension, essential I10 Intractable periodic headache syndrome G43.C1 Intractability: intractable Migraine type: periodic headache syndrome Moderate persistent asthma without complication J45.40 Asthma complication type: uncomplicated Dyspepsia R10.13 Overweight (BMI 25.0-29.9) E66.3 Leukocytosis, unspecified type D72.829 Leukocytosis type: unspecified
== END 2023-09-07 15:27 | disposition home or self-care (01) ==
PROVIDERS: PCP Internal Medicine; Visit Provider Internal Medicine
DX: I10 Essential (primary) hypertension (principal); G43.C1 Periodic headache syndromes in child or adult, intractable; J45.40 Moderate persistent asthma, uncomplicated; R10.13 Epigastric pain; E66.3 Overweight; D72.829 Elevated white blood cell count, unspecified; K58.9 Irritable bowel syndrome, unspecified
CPT/HCPCS: 99214

== ENCOUNTER 2024-02-15 07:27 | Outpatient (REF) | payer OTHER, SELFPAY ==
[2024-02-15 10:25] LABS: MANUAL DIFF FLAG NO
[2024-02-15 10:36] LABS: Basophils Percent Auto 0.4 % (0-2); Eosinophils Absolute Auto 0.1 X10*3/uL (0.0-0.4); Eosinophils Percent Auto 1.6 % (0-4); Hematocrit 47.5 % (42.0-52.0); Hemoglobin 16.5 g/dl (14.0-18.0); Imm Gran Abs Auto 0.05 X10*3/uL (0.00-0.03); Imm Gran Pct Auto 0.7 % (0.0-0.4); Lymphocytes Absolute Auto 2.3 X10*3/uL (1.2-4.9); Lymphocytes Percent Auto 29.8 % (20-40); Mean Corpuscular HGB Conc 34.7 g/dl (31.0-36.0); Mean Corpuscular Hemoglobin 30.1 pg (27.0-33.0); Mean Corpuscular Volume 86.5 fL (80.0-98.0); Monocytes Absolute Auto 0.7 X10*3/uL (0.1-1.2); Monocytes Percent Auto 9.4 % (2-11); Neutrophils Absolute Auto 4.5 x10*3/uL (2.0-8.3); Neutrophils Percent Auto 58.1 % (45-73); Platelet Count 257 X10*3/uL (160-400); Red Blood Count 5.49 X10*6/uL (4.60-5.80); Red Cell Distribution Width 12.4 % (11.0-16.0); White Blood Count 7.7 X10*3/uL (4.8-10.8)
[2024-02-15 10:46] LABS: Alanine Aminotransferase 32 U/L (0-40); Albumin Level 4.6 g/dL (3.5-5.0); Alkaline Phosphatase 38 U/L (39-117); Anion Gap 14 (12-20); Aspartate Amino Transferase 25 U/L (5-37); Bilirubin Total 0.7 mg/dL (0.0-1.0); Blood Urea Nitrogen 21 mg/dL (9-16); Calcium 9.9 mg/dL (8.4-10.2); Carbon Dioxide 28 mmol/L (22-29); Chloride 99 mmol/L (96-108); Cholesterol 225 mg/dL (<200); Estimated Glomerular Filt Rate > 60; Glucose Fasting 148 mg/dL (60-99); HDL Cholesterol 43 mg/dL (>40); LDL Cholesterol Calculated 130 mg/dL (<100); Potassium 3.4 mmol/L (3.3-5.1); Sodium 138 mmol/L (135-145); Total Protein 7.5 g/dL (6.5-8.0); Triglycerides 260 mg/dL (<150)
== END 2024-02-15 07:28 | disposition home or self-care (01) ==
LOC: HO.HMGCLDS 07:27
PROVIDERS: PCP Internal Medicine; Visit Provider Internal Medicine
DX: D72.829 Elevated white blood cell count, unspecified (principal); J45.40 Moderate persistent asthma, uncomplicated; E66.3 Overweight; G43.909 Migraine, unspecified, not intractable, without status migrainosus; I10 Essential (primary) hypertension
CPT/HCPCS: 36415; 80053; 80061; 85025

== ENCOUNTER 2024-02-19 11:33 | Outpatient (AMB) | payer OTHER, SELFPAY ==
[2024-02-19 11:38] VITALS: BP 122/84; PULSE 70; O2SAT 97; BMI 29.8
--- NOTE | 2024-02-19 11:38 | MHC.PC.OV ---
Vital Signs 02/19/24 11:38 Height 5 ft 5 in Weight 179 lb BMI 29.8 BP 122/84 Blood Pressure Location Rt brachial Position Sitting Pulse 70 Pulse Source Pulse Oximeter Pulse Oximetry (%) 97 Oxygen Delivery Method Room Air Intake Visit Reasons: Annual PE Allergies No Known Allergies Allergy (Verified 02/19/24 11:39) Medication List - Last Reconciled 02/19/24 by Linda Singh MD amitriptyline 100 mg PO BEDTIME 90 days atenolol-chlorthalidone 50-25 mg 1 tab PO DAILY [Blood pressure machine As directed] minoxidil 2.5 mg PO DAILY mometasone-formoterol 200-5 mcg/actuation (Dulera) 2 puffs inhalation Q12H 30 days montelukast 10 mg PO DAILY 90 days omeprazole 20 mg PO DAILY 90 days sumatriptan succinate 50 mg PO BID PRN 90 days Ventolin HFA 90 mcg/actuation (albuterol sulfate) 1 inh inhalation QID PRN 30 days NS Tobacco use date assessed: 02/19/24 Dental Screening Dental Screen Date: 02/19/24 Did you have a dental visit in the last 12 months?: Yes Did you have a dental problem in the last 6 months where you did not have access to dental care?: No Was dental information given to patient?: Patient has dentist HPI Annual PE HPI Details Patient is a 38-year-old gentleman came in today for physical examination Patient have history of hypertension, asthma, GERD, migraine headaches Patient has had abnormal fasting sugars of 131 and 148 at 2 different dates He is diet-controlled diabetic with controlled hemoglobin A1c I will be booking him appointment with the dietitian for dietary instructions Labs done recently reviewed BMI is elevated need to lose weight Patient is suffering from alopecia and is taking minoxidil through Dermatology Follow-up 3 months PFS Medical History Polycythemia vera Dyspepsia IBS (irritable bowel syndrome) Migraine headache Asthma Surgical History History of ear surgery Family History Father HTN (hypertension) Mother Cancer Diabetes mellitus Maternal Grandmother Pancreatic cancer Paternal Grandfather Polycythemia Sister No problems noted. Sister No problems noted. Daughter No problems noted. Social History Household Members: Spouse Housing: Apartment Are you a primary continuum of care manager to a significant other at home: No Do you presently have visiting nurse or other home services: No Alcohol intake: current Alcohol intake frequency: holidays/special occasions only Patient Tobacco Use Status: Never used Tobacco e-Cigarette/Vaping Use: Never Used Second Hand Smoke Exposure: No service: No Current occupational status: employed Cognitive needs: No Hearing needs: No Vision needs: No Questionnaire PHQ-9 Over the last 2 weeks, how often have you been bothered by any of the following problems? 1. Little interest or pleasure in doing things: not at all 2. Feeling down, depressed, or hopeless: not at all 3. Trouble falling or staying asleep, or sleeping too much: more than half the days 4. Feeling tired or having little energy: more than half the days 5. Poor appetite or overeating: not at all 6. Feeling bad about yourself - or that you are a failure or have let yourself or your family down: not at all 7. Trouble concentrating on things, such as reading the newspaper or watching television: several days 8. Moving or speaking so slowly that other people could have noticed. Or the opposite - being so fidgety or restless that you have been moving around a lot more than usual: not at all 9. Thoughts that you would be better off or of hurting yourself in some way: not at all Total score: 5 Depression Screening Interpretation: Negative Depression Screening Done: Yes 98374 - PHQ-9 Billing: Yes Source: Developed by Drs. Agustin Lemus, Joslyn Bailey, Lionel Brothers and colleagues, with an educational juan daniel from [employer]. Thrive Questionnaire Date Thrive assessed: 02/19/24 I am a: Patient What is your living situation today?: I have a steady place to live Within the past 12 months, did the food you bought not last and you didn't have the money to get more?: Never true Within the past 12 months, did you worry whether your food would run out before you got money to buy more?: Never true Do you have trouble paying for medicines?: No Do you have trouble getting transportation to medical appointments?: No Do you have trouble paying your heating and electricity bill?: No Do you have trouble taking care of your child, family member or friend?: No Do you have trouble with day-to-day activities such as bathing, preparing meals, shopping, managing finances, etc.?: No Are you currently unemployed and looking for a job?: No Are you interested in more education?: No Please select the resources that you would like help with: None Currently or been in a relationship where the following occur: no concerns reported THRIVE Score: 0 AUDIT C Alcohol Use Questionnaire (AUDIT-C) 1. How often do you have a drink containing alcohol?: 2-4 times a month 2. How many drinks containing alcohol do you have on a typical day when you are drinking?: 1 or 2 3. How often do you have six or more drinks on one occasion?: Never Total Score: 2 Score Reviewed/Action Taken: Yes BONNIE-7 AMB Questionnaire BONNIE-7 Date BONNIE - 7 assessed: 02/19/24 Feeling nervous, anxious, or on edge: 1 = Several days Not being able to stop or control worryin = Several days Worrying too much about different things: 2 = More than half the days Trouble relaxin = More than half the days Being so restless that it is hard to sit still: 2 = More than half the days Becoming easily annoyed or irritable: 0 = Not at all Feeling afraid as if something awful might happen: 0 = Not at all Total BONNIE-7 score (0-4 normal; 5-9 mild; 10-14 moderate; 15-21 severe): 8 Source: Developed by Drs. Agustin Lemus, Joslyn Bailey, Lionel Brothers and colleagues, with an educational juan daniel from [employer]. BONNIE-7 Assessment Billing BONNIE-7 Assessment Tool: BONNIE-7 Assessment 92967 Review of Systems Const Denies chills, Denies fever(s) and Denies headache(s) Eyes Denies blurry vision ENT Denies headache(s), Denies nasal discharge, Denies nasal obstruction, Denies odynophagia and Denies sinus pain Card Denies chest pain at rest and Denies chest pain with activity Resp Denies cough and Denies hemoptysis GI Denies diarrhea, Denies odynophagia, Denies vomiting and Denies hematemesis Reports as per HPI Musc Denies abnormal gait Skin/Breast Reports as per HPI Neuro Denies Neuro-related abnormal movements, Denies Abnormal speech present, Denies abnormal gait, Denies headache(s) and Denies Sensory deficit (Neuro) Psych Denies mood swings and Denies paranoia Endo Reports as per HPI Saroj/Lymph Reports as per HPI Aller/Immun Reports as per HPI Physical exam (Primary Care) Vital Signs: Last Vital Signs Pulse 70 02/19/24 11:38 BP 122/84 02/19/24 11:38 Pulse Ox 97 02/19/24 11:38 Oxygen Delivery Method Room Air 02/19/24 11:38 BMI result Body Mass Index 29.8 Tobacco/Smoking Status: Tobacco use Status Tobacco use date assessed 02/19/24 02/19/24 11:41 Patient Tobacco Use Status Never used Tobacco 02/19/24 11:41 e-Cigarette/Vaping Use Never Used 02/19/24 11:41 PHQ-9: PHQ-9 Score PHQ-9: Total score 5 02/19/24 11:45 Depression Screening Interpretation: Negative Thrive Assessment: Date of Thrive Assessment Date Thrive assessed 02/19/24 02/19/24 11:45 Currently or been in a relationship where the following occur: no concerns reported Const General: cooperative, comfortable and no acute distress Orientation/consciousness: patient oriented x3 HENMT Head: Yes normocephalic and Yes atraumatic Head images: 1. Large bald spot Eyes General: appearance normal, both eyes and all related structures Pupils: Equal, round and reactive pupils present EOM: EOMs intact bilaterally Neck Neck: Yes supple and No lymphadenopathy Thyroid: Thyroid normal Lymphatic: no lymphadenopathy noted Resp Effort & Inspection: normal respiratory effort and able to speak in complete sentences Auscultation: clear to auscultation bilaterally Cardio Heart sounds: S1 normal heart sound present and S2 normal heart sound present GI Palpation (GI): Soft to palpation and nontender Auscultation: normal bowel sounds General: Yes no CVA tenderness Back/Spine/Pelvis Back: no CVA tenderness Skin General skin exam: elasticity normal and turgor normal Neuro General: patient oriented x3 and gait normal Cranial nerves: Yes Equal, round and reactive pupils present Speech: No Abnormal speech present Sensory Exam: No Sensory deficit (Neuro) Coordination: tandem gait normal and Romberg test negative Extrem General: Yes normal exam except as noted and No edema Assessment and Plan Assessment & Plan (1) Encounter for general adult medical examination with abnormal findings: Code(s): Z00.01 - Encounter for general adult medical examination with abnormal findings (2) Diet-controlled diabetes mellitus: Code(s): E11.9 - Type 2 diabetes mellitus without complications (3) Hypertension, essential: Code(s): I10 - Essential (primary) hypertension (4) Migraine headache: Code(s): G43.909 - Migraine, unspecified, not intractable, without status migrainosus Qualifiers: Migraine type: periodic headache syndrome Intractability: intractable Qualified Code(s): G43.C1 - Periodic headache syndromes in child or adult, intractable (5) Asthma, moderate persistent: Code(s): J45.40 - Moderate persistent asthma, uncomplicated Qualifiers: Asthma complication type: uncomplicated Qualified Code(s): J45.40 - Moderate persistent asthma, uncomplicated (6) Dyspepsia: Code(s): R10.13 - Epigastric pain (7) Overweight (BMI 25.0-29.9): Code(s): E66.3 - Overweight Plan Patient is a 38-year-old gentleman came in today for physical examination Patient have history of hypertension, asthma, GERD, migraine headaches Patient has had abnormal fasting sugars of 131 and 148 at 2 different dates He is diet-controlled diabetic with controlled hemoglobin A1c I will be booking him appointment with the dietitian for dietary instructions Labs done recently reviewed BMI is elevated need to lose weight Patient is suffering from alopecia and is taking minoxidil through Dermatology Follow-up 3 months Coding Level of Care Code Est Pt Prev Care 40-64y(34556) Diagnoses Encounter for general adult medical examination with abnormal findings Z00.01 Diet-controlled diabetes mellitus E11.9 Hypertension, essential I10 Intractable periodic headache syndrome G43.C1 Migraine type: periodic headache syndrome Intractability: intractable Moderate persistent asthma without complication J45.40 Asthma complication type: uncomplicated Dyspepsia R10.13 Overweight (BMI 25.0-29.9) E66.3 Additional Codes BONNIE-7 Assessment Billing - BONNIE-7 Assessment Tool: BONNIE-7 Assessment [id number] ([id number])
== END 2024-02-19 11:55 | disposition home or self-care (01) ==
PROVIDERS: PCP Internal Medicine; Visit Provider Internal Medicine
DX: Z00.00 Encounter for general adult medical examination without abnormal findings (principal); E11.9 Type 2 diabetes mellitus without complications; I10 Essential (primary) hypertension; G43.C1 Periodic headache syndromes in child or adult, intractable; J45.40 Moderate persistent asthma, uncomplicated; R10.13 Epigastric pain; E66.3 Overweight
CPT/HCPCS: 99396

== ENCOUNTER 2024-05-20 12:52 | Outpatient (AMB) | payer OTHER, SELFPAY ==
--- NOTE | 2024-05-20 13:03 | MHC.PC.OV ---
Vital Signs 05/20/24 13:04 Height 5 ft 5 in Weight 178 lb BMI 29.6 BP 130/86 Blood Pressure Location Rt brachial Position Sitting Pulse 82 Pulse Source Pulse Oximeter Pulse Oximetry (%) 98 Oxygen Delivery Method Room Air Intake Visit Reasons: 3 month follow up Allergies No Known Allergies Allergy (Verified 05/20/24 13:04) Medication List - Last Reconciled 05/20/24 by Linda Singh MD amitriptyline 100 mg PO BEDTIME 90 days atenolol-chlorthalidone 50-25 mg 1 tab PO DAILY [Blood pressure machine As directed] ibuprofen 400 mg PO BID PRN 30 days minoxidil 2.5 mg PO DAILY mometasone-formoterol 200-5 mcg/actuation (Dulera) 2 puffs inhalation Q12H 30 days montelukast 10 mg PO DAILY 90 days omeprazole 20 mg PO DAILY 90 days sumatriptan succinate 50 mg PO BID PRN 90 days Ventolin HFA 90 mcg/actuation (albuterol sulfate) 1 inh inhalation QID PRN 30 days NS Tobacco use date assessed: 05/20/24 Dental Screening Dental Screen Date: 05/20/24 Did you have a dental visit in the last 12 months?: Yes Did you have a dental problem in the last 6 months where you did not have access to dental care?: No Was dental information given to patient?: Patient has dentist HPI 3 month follow up HPI Details Patient is a 38-year-old gentleman came today for his regular follow-up appointment Patient is complaining of pain right elbow with a past few weeks 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 as needed Labs are needed before next visit 3 months Hypertension: Blood pressure is well controlled patient is taking atenolol chlorthalidone 50-25 mg and is tolerating medication. Asthma is stable patient is on montelukast and Dulera. Headaches are stable with amitriptyline 100 mg at night and sumatriptan as needed. GERD is stable with omeprazole. BMI is elevated patient is trying to lose weight. [facility] Medical History Polycythemia vera Dyspepsia IBS (irritable bowel syndrome) Migraine headache Asthma Surgical History History of ear surgery Family History Father HTN (hypertension) Mother Cancer Diabetes mellitus Maternal Grandmother Pancreatic cancer Paternal Grandfather Polycythemia Sister No problems noted. Sister No problems noted. Daughter No problems noted. Social History Household Members: Spouse Housing: Apartment Are you a primary personal care aide to a significant other at home: No Do you presently have visiting nurse or other home services: No Alcohol intake: current Alcohol intake frequency: holidays/special occasions only Patient Tobacco Use Status: Never used Tobacco e-Cigarette/Vaping Use: Never Used Second Hand Smoke Exposure: No service: No Current occupational status: employed Cognitive needs: No Hearing needs: No Vision needs: No Questionnaire PHQ-9 Over the last 2 weeks, how often have you been bothered by any of the following problems? 1. Little interest or pleasure in doing things: not at all 2. Feeling down, depressed, or hopeless: not at all 3. Trouble falling or staying asleep, or sleeping too much: several days 4. Feeling tired or having little energy: more than half the days 5. Poor appetite or overeating: not at all 6. Feeling bad about yourself - or that you are a failure or have let yourself or your family down: not at all 7. Trouble concentrating on things, such as reading the newspaper or watching television: not at all 8. Moving or speaking so slowly that other people could have noticed. Or the opposite - being so fidgety or restless that you have been moving around a lot more than usual: not at all 9. Thoughts that you would be better off or of hurting yourself in some way: not at all Total score: 3 Depression Screening Interpretation: Negative Depression Screening Done: Yes 06690 - PHQ-9 Billing: Yes Source: Developed by Drs. Agustin Lemus, Joslyn Bailey, Lionel Brothers and colleagues, with an educational juan daniel from [employer]. Thrive Questionnaire Date Thrive assessed: 05/20/24 I am a: Patient What is your living situation today?: I have a steady place to live Within the past 12 months, did the food you bought not last and you didn't have the money to get more?: Never true Within the past 12 months, did you worry whether your food would run out before you got money to buy more?: Never true Do you have trouble paying for medicines?: No Do you have trouble getting transportation to medical appointments?: No Do you have trouble paying your heating and electricity bill?: No Do you have trouble taking care of your child, family member or friend?: No Do you have trouble with day-to-day activities such as bathing, preparing meals, shopping, managing finances, etc.?: No Are you currently unemployed and looking for a job?: No Are you interested in more education?: No Please select the resources that you would like help with: Housing/Care Home Currently or been in a relationship where the following occur: No concerns reported THRIVE Score: 0 AUDIT C Alcohol Use Questionnaire (AUDIT-C) 1. How often do you have a drink containing alcohol?: Monthly or less 2. How many drinks containing alcohol do you have on a typical day when you are drinking?: 1 or 2 3. How often do you have six or more drinks on one occasion?: Never Total Score: 1 Score Reviewed/Action Taken: Yes BONNIE-7 AMB Questionnaire BONNIE-7 Date BONNIE - 7 assessed: 05/20/24 Feeling nervous, anxious, or on edge: 0 = Not at all Not being able to stop or control worryin = Not at all Worrying too much about different things: 1 = Several days Trouble relaxin = Several days Being so restless that it is hard to sit still: 1 = Several days Becoming easily annoyed or irritable: 0 = Not at all Feeling afraid as if something awful might happen: 0 = Not at all Total BONNIE-7 score (0-4 normal; 5-9 mild; 10-14 moderate; 15-21 severe): 3 Source: Developed by Drs. Agustin Lemus, Joslyn Bailey, Lionel Brothers and colleagues, with an educational juan daniel from [employer]. BONNIE-7 Assessment Billing BONNIE-7 Assessment Tool: BONNIE-7 Assessment 78780 Review of Systems Const Denies chills and Denies fever(s) ENT Denies epistaxis and Denies nasal discharge Card Denies chest pain Resp Denies chest congestion, Denies cough and Denies hemoptysis GI Denies diarrhea and Denies nausea Skin/Breast Denies rash Neuro Reports no additional complaints Psych Reports no additional complaints Endo Reports no additional complaints Physical exam (Primary Care) Vital Signs: Last Vital Signs Pulse 82 05/20/24 13:04 BP 130/86 05/20/24 13:04 Pulse Ox 98 05/20/24 13:04 Oxygen Delivery Method Room Air 05/20/24 13:04 BMI result Body Mass Index 29.6 Tobacco/Smoking Status: Tobacco use Status Tobacco use date assessed 05/20/24 05/20/24 13:16 Patient Tobacco Use Status Never used Tobacco 05/20/24 13:05 e-Cigarette/Vaping Use Never Used 05/20/24 13:05 PHQ-9: PHQ-9 Score PHQ-9: Total score 3 05/20/24 13:20 Depression Screening Interpretation: Negative Thrive Assessment: Date of Thrive Assessment Date Thrive assessed 05/20/24 05/20/24 13:16 Currently or been in a relationship where the following occur: No concerns reported Const General: cooperative, comfortable and no acute distress Orientation/consciousness: patient oriented x3 HENIL Head: Yes normocephalic Eyes General: appearance normal, both eyes and all related structures Neck Neck: Yes supple Resp Effort & Inspection: normal respiratory effort, no cough and no stridor Cardio Rhythm: regular rhythm Heart sounds: S1 normal heart sound present and S2 normal heart sound present Skin General skin exam: turgor normal Neuro General: patient oriented x3, tone normal and moves all extremities Extrem Shoulder/upper arm images: 1. Pain with palpation, also with active extension of wrist Right lower extremity: no edema Left lower extremity: no edema Results AMB Hemoglobin A1c AMB Hemoglobin A1c 5.8 % Last Edit by Zach Olvera CMA on 05/20/24 13:20 Results Reviewed Results Reviewed: Laboratory Last Values Hgb A1c (Clinic) 5.8 % (4.0-6.0) 05/20/24 13:12 Assessment and Plan Assessment & Plan (1) Diet-controlled diabetes mellitus: Code(s): E11.9 - Type 2 diabetes mellitus without complications (2) Leukocytosis: Code(s): D72.829 - Elevated white blood cell count, unspecified Qualifiers: Leukocytosis type: unspecified Qualified Code(s): D72.829 - Elevated white blood cell count, unspecified (3) Hypertension, essential: Code(s): I10 - Essential (primary) hypertension (4) Polycythemia vera: Code(s): D45 - Polycythemia vera (5) Asthma, moderate persistent: Code(s): J45.40 - Moderate persistent asthma, uncomplicated Qualifiers: Asthma complication type: uncomplicated Qualified Code(s): J45.40 - Moderate persistent asthma, uncomplicated (6) Right tennis elbow: Code(s): M77.11 - Lateral epicondylitis, right elbow (7) Migraine headache: Code(s): G43.909 - Migraine, unspecified, not intractable, without status migrainosus Qualifiers: Intractability: intractable Migraine type: periodic headache syndrome Qualified Code(s): G43.C1 - Periodic headache syndromes in child or adult, intractable (8) Dyspepsia: Code(s): R10.13 - Epigastric pain (9) Overweight (BMI 25.0-29.9): Code(s): E66.3 - Overweight Plan Patient is a 38-year-old gentleman came today for his regular follow-up appointment Patient is complaining of pain right elbow with a past few weeks 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 as needed Labs are needed before next visit 3 months Hypertension: Blood pressure is well controlled patient is taking atenolol chlorthalidone 50-25 mg and is tolerating medication. Asthma is stable patient is on montelukast and Dulera. Headaches are stable with amitriptyline 100 mg at night and sumatriptan as needed. GERD is stable with omeprazole. BMI is elevated patient is trying to lose weight. Orders: Orders AMB Hemoglobin A1c Today Z13.9 - Encounter for screening, unspecified Hemoglobin A1c 3 Months D45 - Polycythemia vera, D72.829 - Elevated white blood cell count, unspecified, E11.9 - Type 2 diabetes mellitus without complications, I10 - Essential (primary) hypertension, J45.40 - Moderate persistent asthma, uncomplicated, M77.11 - Lateral epicondylitis, right elbow Comprehensive [place]. Panel Fast 3 Months D45 - Polycythemia vera, D72.829 - Elevated white blood cell count, unspecified, E11.9 - Type 2 diabetes mellitus without complications, I10 - Essential (primary) hypertension, J45.40 - Moderate persistent asthma, uncomplicated, M77.11 - Lateral epicondylitis, right elbow Microalbumin, Random (w Creat) 3 Months D45 - Polycythemia vera, D72.829 - Elevated white blood cell count, unspecified, E11.9 - Type 2 diabetes mellitus without complications, I10 - Essential (primary) hypertension, J45.40 - Moderate persistent asthma, uncomplicated, M77.11 - Lateral epicondylitis, right elbow Complete Blood Count Auto Diff 3 Months D45 - Polycythemia vera, D72.829 - Elevated white blood cell count, unspecified, E11.9 - Type 2 diabetes mellitus without complications, I10 - Essential (primary) hypertension, J45.40 - Moderate persistent asthma, uncomplicated, M77.11 - Lateral epicondylitis, right elbow Medications: New ibuprofen Take it with food 400 mg PO BID PRN 60 tabs 0RF pain right elbow 30 days Coding Level of Care Code Est Pt Level 4 (37957) Complex EM visit Add On G2211 Diagnoses Diet-controlled diabetes mellitus E11.9 Leukocytosis, unspecified type D72.829 Leukocytosis type: unspecified Hypertension, essential I10 Polycythemia vera D45 Moderate persistent asthma without complication J45.40 Asthma complication type: uncomplicated Right tennis elbow M77.11 Intractable periodic headache syndrome G43.C1 Intractability: intractable Migraine type: periodic headache syndrome Dyspepsia R10.13 Overweight (BMI 25.0-29.9) E66.3 Additional Codes BONNIE-7 Assessment Billing - BONNIE-7 Assessment Tool: BONNIE-7 Assessment [id number] ([id number])
[2024-05-20 13:04] VITALS: BP 130/86; PULSE 82; O2SAT 98; BMI 29.6
== END 2024-05-20 13:16 | disposition home or self-care (01) ==
PROVIDERS: PCP Internal Medicine; Visit Provider Internal Medicine
DX: E11.9 Type 2 diabetes mellitus without complications (principal); D45 Polycythemia vera; D72.829 Elevated white blood cell count, unspecified; I10 Essential (primary) hypertension; J45.40 Moderate persistent asthma, uncomplicated; M77.11 Lateral epicondylitis, right elbow; G43.C1 Periodic headache syndromes in child or adult, intractable; R10.13 Epigastric pain; E66.3 Overweight
CPT/HCPCS: 83036; 99214; G2211

== ENCOUNTER 2024-08-15 08:06 | Outpatient (REF) | payer OTHER, SELFPAY ==
[2024-08-15 10:07] LABS: MANUAL DIFF FLAG NO
[2024-08-15 10:13] LABS: Basophils Percent Auto 0.1 % (0-2); Eosinophils Absolute Auto 0.1 X10*3/uL (0.0-0.4); Eosinophils Percent Auto 1.6 % (0-4); Hematocrit 47.9 % (42.0-52.0); Hemoglobin 16.5 g/dl (14.0-18.0); Imm Gran Abs Auto 0.04 X10*3/uL (0.00-0.03); Imm Gran Pct Auto 0.5 % (0.0-0.4); Lymphocytes Absolute Auto 1.9 X10*3/uL (1.2-4.9); Lymphocytes Percent Auto 21.3 % (20-40); Mean Corpuscular HGB Conc 34.4 g/dl (31.0-36.0); Mean Corpuscular Hemoglobin 29.4 pg (27.0-33.0); Mean Corpuscular Volume 85.4 fL (80.0-98.0); Mean Platelet Volume 11.9 fL (9.4-12.4); Monocytes Percent Auto 11.1 % (2-11); Neutrophils Absolute Auto 5.7 x10*3/uL (2.0-8.3); Neutrophils Percent Auto 65.4 % (45-73); Platelet Count 238 X10*3/uL (160-400); Red Blood Count 5.61 X10*6/uL (4.60-5.80); Red Cell Distribution Width 12.6 % (11.0-16.0); White Blood Count 8.7 X10*3/uL (4.8-10.8)
[2024-08-15 10:21] LABS: Estimated Average Glucose 120 mg/dL; Hemoglobin A1C 163.7918 umol/L; Hemoglobin A1c % 5.8 % (<6.0); Total Hemoglobin (HGBA1C) 4143.5978 umol/L
[2024-08-15 10:30] LABS: Alanine Aminotransferase 44 U/L (0-40); Albumin Level 4.5 g/dL (3.5-5.0); Alkaline Phosphatase 42 U/L (39-117); Anion Gap 16 (12-20); Aspartate Amino Transferase 51 U/L (5-37); Bilirubin Total 0.7 mg/dL (0.0-1.0); Blood Urea Nitrogen 15 mg/dL (9-16); Carbon Dioxide 26 mmol/L (22-29); Chloride 100 mmol/L (96-108); Estimated Glomerular Filt Rate 59; Glucose Fasting 143 mg/dL (60-99); Potassium 3.8 mmol/L (3.3-5.1); Sodium 138 mmol/L (135-145); Total Protein 7.5 g/dL (6.5-8.0)
[2024-08-15 10:57] LABS: Creatinine Urine 350.63 mg/dL; Microalbum/Creatinine Ratio Ur 2.8 ug/mg cr (<30)
== END 2024-08-15 08:07 | disposition home or self-care (01) ==
LOC: HO.HMGCLDS 08:06
PROVIDERS: PCP Internal Medicine; Visit Provider Internal Medicine
DX: E11.9 Type 2 diabetes mellitus without complications (principal); D72.829 Elevated white blood cell count, unspecified; I10 Essential (primary) hypertension; D45 Polycythemia vera; J45.40 Moderate persistent asthma, uncomplicated; M77.11 Lateral epicondylitis, right elbow
CPT/HCPCS: 36415; 80053; 82043; 82570; 83036; 85025

== ENCOUNTER 2024-08-27 13:56 | Outpatient (AMB) | payer OTHER, SELFPAY ==
--- NOTE | 2024-08-27 14:12 | A.OFFPC_ITS ---
Vital Signs 08/27/24 14:14 Height 5 ft 5 in Weight 177 lb 6 oz BMI 29.5 BP 132/84 Blood Pressure Location Rt brachial Position Sitting Pulse 102 H Pulse Source Pulse Oximeter Pulse Oximetry (%) 98 Oxygen Delivery Method Room Air Intake Visit Reasons: 4 month f/u Allergies No Known Allergies Allergy (Verified 08/27/24 14:16) Medication List - Last Reconciled 08/27/24 by Linda Singh MD amitriptyline 100 mg PO BEDTIME 90 days atenolol-chlorthalidone 50-25 mg 1 tab PO DAILY [Blood pressure machine As directed] ibuprofen 400 mg PO BID PRN 30 days minoxidil 2.5 mg PO DAILY mometasone-formoterol 200-5 mcg/actuation (Dulera) 2 puffs inhalation Q12H 30 days montelukast 10 mg PO DAILY 90 days omeprazole 20 mg PO DAILY 90 days sumatriptan succinate 50 mg PO BID PRN 90 days Ventolin HFA 90 mcg/actuation (albuterol sulfate) 1 inh inhalation QID PRN 30 days NS Tobacco use date assessed: 08/27/24 Dental Screening Dental Screen Date: 05/20/24 Did you have a dental visit in the last 12 months?: Yes Did you have a dental problem in the last 6 months where you did not have access to dental care?: No Was dental information given to patient?: Patient has dentist HPI 4 month f/u HPI Details Patient is a 39-year-old gentleman came in today for his regular follow-up appointment Labs done in July reviewed with the patient He is diet-controlled diabetic, hemoglobin A1c was 5.8, fasting sugar 143 His liver enzymes are slightly elevated, patient does drink 4 or 5 beers every weekend We talked about the toxicity of alcohol I would recommend that he stops drinking alcohol altogether We will repeat labs again before his next visit in 3 months Hypertension: Blood pressure is well controlled patient is taking atenolol chlorthalidone 50-25 mg and is tolerating medication. Asthma is stable patient is on montelukast and Dulera. Headaches are stable with amitriptyline 100 mg at night and sumatriptan as needed. GERD is stable with omeprazole. BMI is elevated patient is trying to lose weight. [facility] Medical History Polycythemia vera Dyspepsia IBS (irritable bowel syndrome) Migraine headache Asthma Surgical History History of ear surgery Family History Father HTN (hypertension) Mother Cancer Diabetes mellitus Maternal Grandmother Pancreatic cancer Paternal Grandfather Polycythemia Sister No problems noted. Sister No problems noted. Daughter No problems noted. Social History Household Members: Spouse Housing: Apartment Are you a primary palliative care specialist to a significant other at home: No Do you presently have visiting nurse or other home services: No Alcohol intake: current Alcohol intake frequency: holidays/special occasions only Patient Tobacco Use Status: Never used Tobacco e-Cigarette/Vaping Use: Never Used Second Hand Smoke Exposure: No service: No Current occupational status: employed Cognitive needs: No Hearing needs: No Vision needs: No Questionnaire Thrive Questionnaire Date Thrive assessed: 08/27/24 I am a: Patient What is your living situation today?: I have a steady place to live Within the past 12 months, did the food you bought not last and you didn't have the money to get more?: Never true Within the past 12 months, did you worry whether your food would run out before you got money to buy more?: Never true Do you have trouble paying for medicines?: No Do you have trouble getting transportation to medical appointments?: No Do you have trouble paying your heating and electricity bill?: No Do you have trouble taking care of your child, family member or friend?: No Do you have trouble with day-to-day activities such as bathing, preparing meals, shopping, managing finances, etc.?: No Are you currently unemployed and looking for a job?: No Are you interested in more education?: No Please select the resources that you would like help with: None Currently or been in a relationship where the following occur: No concerns reported THRIVE Score: 0 AUDIT C Alcohol Use Questionnaire (AUDIT-C) 1. How often do you have a drink containing alcohol?: Monthly or less 2. How many drinks containing alcohol do you have on a typical day when you are drinking?: 1 or 2 3. How often do you have six or more drinks on one occasion?: Never Total Score: 1 Score Reviewed/Action Taken: Yes BONNIE-7 AMB Questionnaire BONNIE-7 Date BONNIE - 7 assessed: 05/20/24 Source: Developed by Drs. Agustin Lemus, Joslyn Bailey, Lionel Brothers and colleagues, with an educational juan daniel from [employer]. Review of Systems Const Denies chills and Denies fever(s) ENT Denies epistaxis and Denies nasal discharge Card Denies chest pain Resp Denies chest congestion, Denies cough and Denies hemoptysis GI Denies diarrhea and Denies nausea Skin/Breast Denies rash Neuro Reports no additional complaints Psych Reports no additional complaints Endo Reports no additional complaints Physical exam (Primary Care) Vital Signs: Last Vital Signs Pulse 102 H 08/27/24 14:14 BP 132/84 08/27/24 14:14 Pulse Ox 98 08/27/24 14:14 Oxygen Delivery Method Room Air 08/27/24 14:14 BMI result Body Mass Index 29.5 Tobacco/Smoking Status: Tobacco use Status Tobacco use date assessed 08/27/24 08/27/24 14:16 Patient Tobacco Use Status Never used Tobacco 08/27/24 14:14 e-Cigarette/Vaping Use Never Used 08/27/24 14:14 Thrive Assessment: Date of Thrive Assessment Date Thrive assessed 08/27/24 08/27/24 14:16 Currently or been in a relationship where the following occur: No concerns reported Const General: cooperative, comfortable and no acute distress Orientation/consciousness: patient oriented x3 HENMT Head: Yes normocephalic Eyes General: appearance normal, both eyes and all related structures Neck Neck: Yes supple Resp Effort & Inspection: normal respiratory effort, no cough and no stridor Cardio Rhythm: regular rhythm Heart sounds: S1 normal heart sound present and S2 normal heart sound present Skin General skin exam: turgor normal Neuro General: patient oriented x3, tone normal and moves all extremities Extrem Right lower extremity: no edema Left lower extremity: no edema Coding Level of Care Code Est Pt Level 4 (77259) Complex EM visit Add On G2211 Diagnoses Hypertension, essential I10 Diet-controlled diabetes mellitus E11.9 LFT elevation R79.89 Polycythemia vera D45 Moderate persistent asthma without complication J45.40 Asthma complication type: uncomplicated Intractable periodic headache syndrome G43.C1 Migraine type: periodic headache syndrome Intractability: intractable Drinks beer Z78.9 Other irritable bowel syndrome K58.8 Irritable bowel syndrome type: other Dyspepsia R10.13 Assessment & Plan Assessment & Plan (1) Hypertension, essential: Code(s): I10 - Essential (primary) hypertension Category: Medical (2) Diet-controlled diabetes mellitus: Code(s): E11.9 - Type 2 diabetes mellitus without complications Category: Medical (3) LFT elevation: Code(s): R79.89 - Other specified abnormal findings of blood chemistry Category: Medical (4) Polycythemia vera: Code(s): D45 - Polycythemia vera Category: Medical (5) Asthma, moderate persistent: Code(s): J45.40 - Moderate persistent asthma, uncomplicated Category: Medical Qualifiers: Asthma complication type: uncomplicated Qualified Code(s): J45.40 - Moderate persistent asthma, uncomplicated (6) Migraine headache: Code(s): G43.909 - Migraine, unspecified, not intractable, without status migrainosus Category: Medical Qualifiers: Migraine type: periodic headache syndrome Intractability: intractable Qualified Code(s): G43.C1 - Periodic headache syndromes in child or adult, intractable (7) Drinks beer: Code(s): Z78.9 - Other specified health status Category: Social Hx (8) IBS (irritable bowel syndrome): Code(s): K58.9 - Irritable bowel syndrome, unspecified Category: Medical Qualifiers: Irritable bowel syndrome type: other Qualified Code(s): K58.8 - Other irritable bowel syndrome (9) Dyspepsia: Code(s): R10.13 - Epigastric pain Category: Medical Plan Patient is a 39-year-old gentleman came in today for his regular follow-up appointment Labs done in July reviewed with the patient He is diet-controlled diabetic, hemoglobin A1c was 5.8, fasting sugar 143 His liver enzymes are slightly elevated, patient does drink 4 or 5 beers every weekend We talked about the toxicity of alcohol I would recommend that he stops drinking alcohol altogether We will repeat labs again before his next visit in 3 months Hypertension: Blood pressure is well controlled patient is taking atenolol chlorthalidone 50-25 mg and is tolerating medication. Asthma is stable patient is on montelukast and Dulera. Headaches are stable with amitriptyline 100 mg at night and sumatriptan as needed. GERD is stable with omeprazole. BMI is elevated patient is trying to lose weight. Orders: Orders Hemoglobin A1c 3 Months D45 - Polycythemia vera, E11.9 - Type 2 diabetes mellitus without complications, G43.C1 - Periodic headache syndromes in child or adult, intractable, I10 - Essential (primary) hypertension, J45.40 - Moderate persistent asthma, uncomplicated, K58.8 - Other irritable bowel syndrome, R10.13 - Epigastric pain, R79.89 - Other specified abnormal findings of blood chemistry, Z78.9 - Other specified health status Vitamin B12 3 Months D45 - Polycythemia vera, E11.9 - Type 2 diabetes mellitus without complications, G43.C1 - Periodic headache syndromes in child or adult, intractable, I10 - Essential (primary) hypertension, J45.40 - Moderate persistent asthma, uncomplicated, K58.8 - Other irritable bowel syndrome, R10.13 - Epigastric pain, R79.89 - Other specified abnormal findings of blood chemistry, Z78.9 - Other specified health status TSH reflex Free T4 3 Months D45 - Polycythemia vera, E11.9 - Type 2 diabetes mellitus without complications, G43.C1 - Periodic headache syndromes in child or adult, intractable, I10 - Essential (primary) hypertension, J45.40 - Moderate persistent asthma, uncomplicated, K58.8 - Other irritable bowel syndrome, R10.13 - Epigastric pain, R79.89 - Other specified abnormal findings of blood chemistry, Z78.9 - Other specified health status Complete Blood Count Auto Diff 3 Months D45 - Polycythemia vera, E11.9 - Type 2 diabetes mellitus without complications, G43.C1 - Periodic headache syndromes in child or adult, intractable, I10 - Essential (primary) hypertension, J45.40 - Moderate persistent asthma, uncomplicated, K58.8 - Other irritable bowel syndrome, R10.13 - Epigastric pain, R79.89 - Other specified abnormal findings of blood chemistry, Z78.9 - Other specified health status Comprehensive [place]. Panel Fast 3 Months D45 - Polycythemia vera, E11.9 - Type 2 diabetes mellitus without complications, G43.C1 - Periodic headache syndromes in child or adult, intractable, I10 - Essential (primary) hypertension, J45.40 - Moderate persistent asthma, uncomplicated, K58.8 - Other irritable bowel syndrome, R10.13 - Epigastric pain, R79.89 - Other specified abnormal findings of blood chemistry, Z78.9 - Other specified health status Microalbumin, Random (w Creat) 3 Months D45 - Polycythemia vera, E11.9 - Type 2 diabetes mellitus without complications, G43.C1 - Periodic headache syndromes in child or adult, intractable, I10 - Essential (primary) hypertension, J45.40 - Moderate persistent asthma, uncomplicated, K58.8 - Other irritable bowel syndrome, R10.13 - Epigastric pain, R79.89 - Other specified abnormal findings of blood chemistry, Z78.9 - Other specified health status Vitamin D 25-OH (D2 and D3) 3 Months D45 - Polycythemia vera, E11.9 - Type 2 diabetes mellitus without complications, G43.C1 - Periodic headache syndromes in child or adult, intractable, I10 - Essential (primary) hypertension, J45.40 - Moderate persistent asthma, uncomplicated, K58.8 - Other irritable bowel syndrome, R10.13 - Epigastric pain, R79.89 - Other specified abnormal findings of blood chemistry, Z78.9 - Other specified health status Ferritin 3 Months D45 - Polycythemia vera, E11.9 - Type 2 diabetes mellitus without complications, G43.C1 - Periodic headache syndromes in child or adult, intractable, I10 - Essential (primary) hypertension, J45.40 - Moderate persistent asthma, uncomplicated, K58.8 - Other irritable bowel syndrome, R10.13 - Epigastric pain, R79.89 - Other specified abnormal findings of blood chemistry, Z78.9 - Other specified health status
[2024-08-27 14:14] VITALS: BP 132/84; PULSE 102; O2SAT 98; BMI 29.5
== END 2024-08-27 15:03 | disposition home or self-care (01) ==
LOC: HO.HMCC 13:57
PROVIDERS: PCP Internal Medicine; Visit Provider Internal Medicine
DX: I10 Essential (primary) hypertension (principal); E11.9 Type 2 diabetes mellitus without complications; R79.89 Other specified abnormal findings of blood chemistry; D45 Polycythemia vera; J45.40 Moderate persistent asthma, uncomplicated; G43.C1 Periodic headache syndromes in child or adult, intractable; Z78.9 Other specified health status; K58.8 Other irritable bowel syndrome; R10.13 Epigastric pain

== ENCOUNTER → 2024-08-27 13:56 | Outpatient (BNVA) | payer OTHER, SELFPAY | PROVIDERS: PCP Internal Medicine; Visit Provider Internal Medicine | DX: I10 Essential (primary) hypertension (principal); E11.9 Type 2 diabetes mellitus without complications; R79.89 Other specified abnormal findings of blood chemistry; D45 Polycythemia vera; J45.40 Moderate persistent asthma, uncomplicated; G43.C1 Periodic headache syndromes in child or adult, intractable; K58.8 Other irritable bowel syndrome; R10.13 Epigastric pain; Z78.9 Other specified health status | CPT/HCPCS: 99212 ==

== ENCOUNTER 2024-11-22 09:11 | Outpatient (REF) | payer OTHER, SELFPAY ==
[2024-11-22 11:56] LABS: MANUAL DIFF FLAG NO
[2024-11-22 11:59] LABS: Basophils Percent Auto 0.3 % (0-2); Eosinophils Absolute Auto 0.1 X10*3/uL (0.0-0.4); Eosinophils Percent Auto 1.6 % (0-4); Hematocrit 46.3 % (42.0-52.0); Hemoglobin 15.9 g/dl (14.0-18.0); Imm Gran Abs Auto 0.03 X10*3/uL (0.00-0.03); Imm Gran Pct Auto 0.4 % (0.0-0.4); Lymphocytes Absolute Auto 2.4 X10*3/uL (1.2-4.9); Lymphocytes Percent Auto 35.7 % (20-40); Mean Corpuscular HGB Conc 34.3 g/dl (31.0-36.0); Mean Corpuscular Hemoglobin 27.7 pg (27.0-33.0); Mean Corpuscular Volume 80.5 fL (80.0-98.0); Mean Platelet Volume 11.8 fL (9.4-12.4); Monocytes Absolute Auto 0.5 X10*3/uL (0.1-1.2); Monocytes Percent Auto 7.9 % (2-11); Neutrophils Absolute Auto 3.6 x10*3/uL (2.0-8.3); Neutrophils Percent Auto 54.1 % (45-73); Platelet Count 354 X10*3/uL (160-400); Red Blood Count 5.75 X10*6/uL (4.60-5.80); Red Cell Distribution Width 12.5 % (11.0-16.0); White Blood Count 6.7 X10*3/uL (4.8-10.8)
[2024-11-22 12:09] LABS: Estimated Average Glucose 117 mg/dL; Hemoglobin A1C 162.1124 umol/L; Hemoglobin A1c % 5.7 % (<6.0); Total Hemoglobin (HGBA1C) 4174.8269 umol/L
[2024-11-22 12:27] LABS: Alanine Aminotransferase 40 U/L (0-40); Albumin Level 4.5 g/dL (3.5-5.0); Alkaline Phosphatase 38 U/L (39-117); Anion Gap 14 (12-20); Aspartate Amino Transferase 30 U/L (5-37); Bilirubin Total 0.6 mg/dL (0.0-1.0); Blood Urea Nitrogen 14 mg/dL (9-16); Calcium 9.5 mg/dL (8.4-10.2); Carbon Dioxide 25 mmol/L (22-29); Chloride 103 mmol/L (96-108); Estimated Glomerular Filt Rate > 60; Glucose Fasting 127 mg/dL (60-99); Potassium 3.1 mmol/L (3.3-5.1); Sodium 139 mmol/L (135-145); Total Protein 7.6 g/dL (6.5-8.0)
[2024-11-22 12:31] LABS: Creatinine Urine 228.11 mg/dL; Microalbum/Creatinine Ratio Ur 2.6 ug/mg cr (<30)
[2024-11-22 12:37] LABS: Vitamin B12 583 pg/mL (200-900)
[2024-11-22 12:45] LABS: Ferritin 17 ng/mL (20-250); TSH reflex Free T4 0.59 uIU/mL (0.32-4.0)
[2024-11-26 15:44] LABS: Vitamin D 25-OH, D2 <4 ng/mL; Vitamin D 25-OH, D3 22 ng/mL; Vitamin D 25-OH, Total 22 ng/mL (30-100)
== END 2024-11-22 09:12 | disposition home or self-care (01) ==
LOC: HO.HMGCLDS 09:11
PROVIDERS: PCP Internal Medicine; Visit Provider Internal Medicine
DX: G43.C1 Periodic headache syndromes in child or adult, intractable (principal); K58.8 Other irritable bowel syndrome; R10.13 Epigastric pain; J45.40 Moderate persistent asthma, uncomplicated; D45 Polycythemia vera; I10 Essential (primary) hypertension; E11.9 Type 2 diabetes mellitus without complications; R79.89 Other specified abnormal findings of blood chemistry; Z78.9 Other specified health status
CPT/HCPCS: 36415; 80053; 82043; 82306; 82570; 82607; 82728; 83036; 84443; 85025

== ENCOUNTER 2024-11-25 13:17 | Outpatient (AMB) | payer OTHER, SELFPAY ==
--- NOTE | 2024-11-25 13:18 | MHC.PC.OV ---
Vital Signs 11/25/24 13:19 Height 5 ft 5 in Weight 179 lb 2 oz BMI 29.8 BP 120/78 Blood Pressure Location Rt brachial Position Sitting Respiration 14 Pulse 81 Pulse Source Pulse Oximeter Temp 98 F Temp Source Oral Pulse Oximetry (%) 98 Oxygen Delivery Method Room Air Intake Visit Reasons: 3 month Allergies No Known Allergies Allergy (Verified 11/25/24 13:19) Medication List - Last Reconciled 11/25/24 by Linda Singh MD amitriptyline 100 mg PO BEDTIME 90 days atenolol-chlorthalidone 50-25 mg 1 tab PO DAILY [Blood pressure machine As directed] minoxidil 2.5 mg PO DAILY mometasone-formoterol 200-5 mcg/actuation (Dulera) 2 puffs inhalation Q12H 30 days montelukast 10 mg PO DAILY 90 days omeprazole 20 mg PO DAILY 90 days sumatriptan succinate 50 mg PO BID PRN 90 days Ventolin HFA 90 mcg/actuation (albuterol sulfate) 1 inh inhalation QID PRN 30 days NS Tobacco use date assessed: 11/25/24 Dental Screening Dental Screen Date: 11/25/24 Did you have a dental visit in the last 12 months?: Yes Did you have a dental problem in the last 6 months where you did not have access to dental care?: No Was dental information given to patient?: Patient has dentist HPI 3 month HPI Details - The patient is a 39-year-old male presenting for a regular follow-up and review of laboratory results. - Essential Hypertension: The patient remains on atenolol and chlorthalidone, with a recent potassium level measured at 3.1 mmol/L. No hypokalemic symptoms were reported. - Asthma: Well-controlled with the use of Dulera and montelukast, with no recent exacerbations or respiratory distress reported. - Diabetes Mellitus Type 2: Well-managed through dietary changes, with fasting glucose reduced to 127 mg/dL and HbA1c at 5.7%. - Migraine: Managed with sumatriptan, with no recent increase in headache severity. - Iron Deficiency: Mild deficiency with regular red meat intake, and hemoglobin remains stable. Problem List - Essential Hypertension - Asthma - Diabetes Mellitus Type 2 (diet-controlled) - Migraine - Iron Deficiency - Hypokalemia Patient Instructions - Eat one banana everyday to help increase potassium levels. - Monitor asthma symptoms and continue current medications. - Maintain dietary management for diabetes, as blood sugar levels and HbA1c are within an acceptable range. - Plan to repeat potassium level testing at the end of the month. - Continue current treatment regimen for migraines and report any changes in headache pattern or severity. Review of Systems - Respiratory: Reports stable asthma management. - General: Denies chest pain and shortness of breath. - Neurological: No headaches no dizziness - Ear nose throat: No sore throat no hearing difficulty no ear pain - Cardiovascular: No syncope, no chest pain, no palpitations - Gastrointestinal: No nausea vomiting or diarrhea - Endocrine: No polyuria polydipsia no heat intolerance - Genitourinary: No dysuria , no blood in urine Physical Exam - General: No acute distress - HEENT: No acute findings - Neck: Supple - Respiratory system: Able to talk in full sentences, no audible wheeze - cardiovascular: S1-S2 regular in rate and rhythm - Gastrointestinal: No pain - Extremities: No new findings - PENCILS WASHER: Alert awake oriented x3 motor sensory intact - Skin: Normal turgor [facility] Medical History Polycythemia vera Dyspepsia IBS (irritable bowel syndrome) Migraine headache Asthma Surgical History History of ear surgery Family History Father HTN (hypertension) Mother Cancer Diabetes mellitus Maternal Grandmother Pancreatic cancer Paternal Grandfather Polycythemia Sister No problems noted. Sister No problems noted. Daughter No problems noted. Social History Household Members: Spouse Housing: Apartment Are you a primary hospice spiritual care coordinator to a significant other at home: No Do you presently have visiting nurse or other home services: No Alcohol intake: current Alcohol intake frequency: holidays/special occasions only Patient Tobacco Use Status: Never used Tobacco e-Cigarette/Vaping Use: Never Used Second Hand Smoke Exposure: No service: No Current occupational status: employed Cognitive needs: No Hearing needs: No Vision needs: No Questionnaire PHQ-9 Over the last 2 weeks, how often have you been bothered by any of the following problems? 1. Little interest or pleasure in doing things: not at all 2. Feeling down, depressed, or hopeless: not at all 3. Trouble falling or staying asleep, or sleeping too much: several days 4. Feeling tired or having little energy: more than half the days 5. Poor appetite or overeating: not at all 6. Feeling bad about yourself - or that you are a failure or have let yourself or your family down: not at all 7. Trouble concentrating on things, such as reading the newspaper or watching television: not at all 8. Moving or speaking so slowly that other people could have noticed. Or the opposite - being so fidgety or restless that you have been moving around a lot more than usual: not at all 9. Thoughts that you would be better off or of hurting yourself in some way: not at all Total score: 3 Depression Screening Interpretation: Negative Depression Screening Done: Yes 20707 - PHQ-9 Billing: Yes Source: Developed by Drs. Agustin Lemus, Joslyn Bailey, Lionel Brothers and colleagues, with an educational juan daniel from [employer]. Thrive Questionnaire Date Thrive assessed: 11/25/24 I am a: Patient What is your living situation today?: I have a steady place to live Within the past 12 months, did the food you bought not last and you didn't have the money to get more?: Never true Within the past 12 months, did you worry whether your food would run out before you got money to buy more?: Never true Do you have trouble paying for medicines?: No Do you have trouble getting transportation to medical appointments?: No Do you have trouble paying your heating and electricity bill?: No Do you have trouble taking care of your child, family member or friend?: No Do you have trouble with day-to-day activities such as bathing, preparing meals, shopping, managing finances, etc.?: No Are you currently unemployed and looking for a job?: No Are you interested in more education?: No Please select the resources that you would like help with: None Currently or been in a relationship where the following occur: No concerns reported THRIVE Score: 0 AUDIT C Alcohol Use Questionnaire (AUDIT-C) 1. How often do you have a drink containing alcohol?: Never 3. How often do you have six or more drinks on one occasion?: Never Total Score: 0 Score Reviewed/Action Taken: Yes BONNIE-7 AMB Questionnaire BONNIE-7 Date BONNIE - 7 assessed: 11/25/24 Feeling nervous, anxious, or on edge: 0 = Not at all Not being able to stop or control worryin = Several days Worrying too much about different things: 1 = Several days Trouble relaxin = Several days Being so restless that it is hard to sit still: 2 = More than half the days Becoming easily annoyed or irritable: 1 = Several days Feeling afraid as if something awful might happen: 0 = Not at all Total BONNIE-7 score (0-4 normal; 5-9 mild; 10-14 moderate; 15-21 severe): 6 Source: Developed by Drs. Agustin Lemus, Joslyn Bailey, Lionel Brothers and colleagues, with an educational juan daniel from [employer]. BONNIE-7 Assessment Billing BONNIE-7 Assessment Tool: BONNIE-7 Assessment 47434 Physical exam (Primary Care) Vital Signs: Last Vital Signs Temp 98 F 11/25/24 13:19 Pulse 81 11/25/24 13:19 Resp 14 11/25/24 13:19 BP 120/78 11/25/24 13:19 Pulse Ox 98 11/25/24 13:19 Oxygen Delivery Method Room Air 11/25/24 13:19 BMI result Body Mass Index 29.8 Tobacco/Smoking Status: Tobacco use Status Tobacco use date assessed 11/25/24 11/25/24 13:27 Patient Tobacco Use Status Never used Tobacco 11/25/24 13:27 e-Cigarette/Vaping Use Never Used 11/25/24 13:27 PHQ-9: PHQ-9 Score PHQ-9: Total score 3 11/25/24 13:27 Depression Screening Interpretation: Negative Thrive Assessment: Date of Thrive Assessment Date Thrive assessed 11/25/24 11/25/24 13:27 Currently or been in a relationship where the following occur: No concerns reported Coding Level of Care Code Est Pt Level 4 (35180) Complex EM visit Add On G2211 Diagnoses Hypokalemia E87.6 Hypertension, essential I10 Diet-controlled diabetes mellitus E11.9 Polycythemia vera D45 Moderate persistent asthma without complication J45.40 Asthma complication type: uncomplicated Intractable periodic headache syndrome G43.C1 Migraine type: periodic headache syndrome Intractability: intractable Dyspepsia R10.13 Additional Codes BONNIE-7 Assessment Billing - BONNIE-7 Assessment Tool: BONNIE-7 Assessment 10815 ([id number]) PHQ-9 - 77031 - PHQ-9 Billing: Yes ([id number]) Assessment & Plan Assessment & Plan (1) Hypokalemia: Code(s): E87.6 - Hypokalemia Category: Medical (2) Hypertension, essential: Code(s): I10 - Essential (primary) hypertension Category: Medical (3) Diet-controlled diabetes mellitus: Code(s): E11.9 - Type 2 diabetes mellitus without complications Category: Medical (4) Polycythemia vera: Code(s): D45 - Polycythemia vera Category: Medical (5) Asthma, moderate persistent: Code(s): J45.40 - Moderate persistent asthma, uncomplicated Category: Medical Qualifiers: Asthma complication type: uncomplicated Qualified Code(s): J45.40 - Moderate persistent asthma, uncomplicated (6) Migraine headache: Code(s): G43.909 - Migraine, unspecified, not intractable, without status migrainosus Category: Medical Qualifiers: Migraine type: periodic headache syndrome Intractability: intractable Qualified Code(s): G43.C1 - Periodic headache syndromes in child or adult, intractable (7) Dyspepsia: Code(s): R10.13 - Epigastric pain Category: Medical Plan - The patient is a 39-year-old male presenting for a regular follow-up and review of laboratory results. - Essential Hypertension: The patient remains on atenolol and chlorthalidone, with a recent potassium level measured at 3.1 mmol/L. No hypokalemic symptoms were reported. - Asthma: Well-controlled with the use of Dulera and montelukast, with no recent exacerbations or respiratory distress reported. - Diabetes Mellitus Type 2: Well-managed through dietary changes, with fasting glucose reduced to 127 mg/dL and HbA1c at 5.7%. - Migraine: Managed with sumatriptan, with no recent increase in headache severity. - Iron Deficiency: Mild deficiency with regular red meat intake, and hemoglobin remains stable. Problem List - Essential Hypertension - Asthma - Diabetes Mellitus Type 2 (diet-controlled) - Migraine - Iron Deficiency - Hypokalemia Patient Instructions - Eat one banana everyday to help increase potassium levels. - Monitor asthma symptoms and continue current medications. - Maintain dietary management for diabetes, as blood sugar levels and HbA1c are within an acceptable range. - Plan to repeat potassium level testing at the end of the month. - Continue current treatment regimen for migraines and report any changes in headache pattern or severity. Orders: Orders Basic Metabolic Panel Today E87.6 - Hypokalemia
[2024-11-25 13:19] VITALS: BP 120/78; PULSE 81; RESP 14; TEMP 36.6; O2SAT 98; BMI 29.8
== END 2024-11-25 14:34 | disposition home or self-care (01) ==
PROVIDERS: PCP Internal Medicine; Visit Provider Internal Medicine
DX: E87.6 Hypokalemia (principal); I10 Essential (primary) hypertension; E11.9 Type 2 diabetes mellitus without complications; D45 Polycythemia vera; J45.40 Moderate persistent asthma, uncomplicated; G43.C1 Periodic headache syndromes in child or adult, intractable; R10.13 Epigastric pain

== ENCOUNTER → 2024-11-25 13:17 | Outpatient (BNVA) | payer OTHER, SELFPAY | PROVIDERS: PCP Internal Medicine; Visit Provider Internal Medicine | DX: E87.6 Hypokalemia (principal); I10 Essential (primary) hypertension; E11.9 Type 2 diabetes mellitus without complications; D45 Polycythemia vera; J45.40 Moderate persistent asthma, uncomplicated; R10.13 Epigastric pain; G43.C1 Periodic headache syndromes in child or adult, intractable | CPT/HCPCS: 96127; 99212 ==

== ENCOUNTER 2024-12-18 11:33 | Outpatient (REF) | payer OTHER, SELFPAY ==
[2024-12-18 13:24] LABS: Anion Gap 12 (12-20); Blood Urea Nitrogen 15 mg/dL (9-16); Calcium 9.9 mg/dL (8.4-10.2); Carbon Dioxide 26 mmol/L (22-29); Chloride 104 mmol/L (96-108); Estimated Glomerular Filt Rate > 60; Glucose Random 128 mg/dL (60-115); Potassium 3.2 mmol/L (3.3-5.1); Sodium 139 mmol/L (135-145)
== END 2024-12-18 11:34 | disposition home or self-care (01) ==
LOC: HO.HMGCLDS 11:33
PROVIDERS: PCP Internal Medicine; Visit Provider Internal Medicine
DX: E87.5 Hyperkalemia (principal)
CPT/HCPCS: 36415; 80048

== ENCOUNTER 2025-02-25 12:18 | Outpatient (AMB) | payer OTHER, SELFPAY ==
--- NOTE | 2025-02-25 12:26 | MHC.PC.OV ---
Vital Signs 02/25/25 12:27 Height 5 ft 5 in Weight 172 lb 6 oz BMI 28.7 BP 118/76 Blood Pressure Location Rt brachial Position Sitting Pulse 86 Pulse Source Pulse Oximeter Pulse Oximetry (%) 97 Oxygen Delivery Method Room Air Intake Visit Reasons: Annual PE Allergies No Known Allergies Allergy (Verified 02/25/25 12:29) Medication List - Last Reconciled 02/25/25 by Linda Singh MD amitriptyline 100 mg PO BEDTIME 90 days atenolol-chlorthalidone 50-25 mg 1 tab PO DAILY [Blood pressure machine As directed] minoxidil 2.5 mg PO DAILY mometasone-formoterol 200-5 mcg/actuation (Dulera) 2 puffs inhalation Q12H 30 days montelukast 10 mg PO DAILY 90 days omeprazole 20 mg PO DAILY 90 days sumatriptan succinate 50 mg PO BID PRN 90 days Ventolin HFA 90 mcg/actuation (albuterol sulfate) 1 inh inhalation QID PRN 30 days NS Tobacco use date assessed: 02/25/25 Dental Screening Dental Screen Date: 02/25/25 Did you have a dental visit in the last 12 months?: Yes Did you have a dental problem in the last 6 months where you did not have access to dental care?: No Was dental information given to patient?: Patient has dentist HPI Annual PE HPI Details History of Present Illness - The patient is a 39-year-old male presenting for a physical exam and routine follow-up. Pt has Hx polycythemia vera and leukocytosos, established with [employer] - Hypertension is managed with medications including atenolol and chlorthalidone. Blood pressure was noted as good during the current visit. - Asthma is currently reported as well-managed, with the patient taking Dulera and montelukast. - Allergies are presently stable; the patient is taking montelukast as part of the management. - The patient has been dealing with hair loss and is managing it with minoxidil; the treatment is reportedly effective. Through Dermatology - Headaches are treated with sumatriptan. - Gastroesophageal Reflux Disease (GERD) is managed with omeprazole - The patient's vitamin D levels are low, and supplementation is recommended. Health Maintenance - Last Tetanus vaccination was in 2018. - Pneumonia vaccine administered in 2019. - Potassium levels noted as slightly low, likely influenced by alcohol consumption. - The patient is advised to continue vitamin D supplementation daily, with an ongoing prescription for six months. - Regular blood test monitoring recommended, with the next test planned in four months. 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 - No job security issues discussed. Diagnostic results - Labs from November: - Complete Blood Count (CBC) normal - Kidney function normal - Liver enzymes, including alkaline phosphatase, were normal (38) - Low Vitamin D levels Patient Instructions - Continue taking all current medications as prescribed. - Take vitamin D supplements every day. - Be cautious with alcohol consumption as it can affect potassium levels. - Next blood test to be done four months from now, preferably fasting. - Return for follow-up in four months with completed blood tests. Review of Systems - General: No fever no chills - Neurological: No headaches no dizziness - Ear nose throat: No sore throat no hearing difficulty no ear pain - Cardiovascular: No syncope, no chest pain, no palpitations - Gastrointestinal: No nausea vomiting or diarrhea - Endocrine: No polyuria polydipsia no heat intolerance - Genitourinary: No dysuria - Skin: No new complaints Physical Exam General: Cooperative, healthy appearing, comfortable, no acute distress Orientation: Patient oriented x3 Head: Normal to inspection Ears: Within normal limit visually Nose: Normal external nose present Face and sinus: Normal facial exam Eyes: Appearance normal, extraocular movement intact pupils reactive Neck: Normal visual inspection and supple Respiratory: Normal respiratory effort and able to speak in complete sentences. Clear to auscultation, no stridor Cardiovascular: S1 and S2 GI: Normal to inspection. Soft to palpation and nontender Skin: Turgor normal, no acute findings Neuro: Patient oriented x3, motor sensory intact, balance intact, tandem pass Extremities: Normal to inspection [facility] Medical History Polycythemia vera Dyspepsia IBS (irritable bowel syndrome) Migraine headache Asthma Surgical History History of ear surgery Family History Father HTN (hypertension) Mother Cancer Diabetes mellitus Maternal Grandmother Pancreatic cancer Paternal Grandfather Polycythemia Sister No problems noted. Sister No problems noted. Daughter No problems noted. Social History Household Members: Spouse Housing: Apartment Are you a primary career information specialist to a significant other at home: No Do you presently have visiting nurse or other home services: No Alcohol intake: current Alcohol intake frequency: holidays/special occasions only Patient Tobacco Use Status: Never used Tobacco e-Cigarette/Vaping Use: Never Used Second Hand Smoke Exposure: No service: No Current occupational status: employed Cognitive needs: No Hearing needs: No Vision needs: No Questionnaire Thrive Questionnaire Date Thrive assessed: 02/25/25 I am a: Patient What is your living situation today?: I have a steady place to live Within the past 12 months, did the food you bought not last and you didn't have the money to get more?: Never true Within the past 12 months, did you worry whether your food would run out before you got money to buy more?: Never true Do you have trouble paying for medicines?: No Do you have trouble getting transportation to medical appointments?: No Do you have trouble paying your heating and electricity bill?: No Do you have trouble taking care of your child, family member or friend?: No Do you have trouble with day-to-day activities such as bathing, preparing meals, shopping, managing finances, etc.?: No Are you currently unemployed and looking for a job?: No Are you interested in more education?: No Please select the resources that you would like help with: None Currently or been in a relationship where the following occur: No concerns reported THRIVE Score: 0 AUDIT C Alcohol Use Questionnaire (AUDIT-C) 1. How often do you have a drink containing alcohol?: Monthly or less 2. How many drinks containing alcohol do you have on a typical day when you are drinking?: 1 or 2 3. How often do you have six or more drinks on one occasion?: Never Total Score: 1 Score Reviewed/Action Taken: Yes BONNIE-7 AMB Questionnaire BONNIE-7 Date BONNIE - 7 assessed: 11/25/24 Source: Developed by Drs. Agustin Lemus, Joslyn Bailey, Lionel Brothers and colleagues, with an educational juan daniel from [email or web address]. Physical exam (Primary Care) Vital Signs: Last Vital Signs Pulse 86 02/25/25 12:27 BP 118/76 02/25/25 12:27 Pulse Ox 97 02/25/25 12:27 Oxygen Delivery Method Room Air 02/25/25 12:27 BMI result Body Mass Index 28.7 Tobacco/Smoking Status: Tobacco use Status Tobacco use date assessed 02/25/25 02/25/25 12:29 Patient Tobacco Use Status Never used Tobacco 02/25/25 12:29 e-Cigarette/Vaping Use Never Used 02/25/25 12:29 Thrive Assessment: Date of Thrive Assessment Date Thrive assessed 02/25/25 02/25/25 12:29 Currently or been in a relationship where the following occur: No concerns reported Coding Level of Care Code Est Pt Level 4 (98011) Est Pt Prev Care 40-64y(71342) Diagnoses Encounter for general adult medical examination with abnormal findings Z00.01 Diet-controlled diabetes mellitus E11.9 Moderate persistent asthma without complication J45.40 Asthma complication type: uncomplicated Hypertension, essential I10 Intractable periodic headache syndrome G43.C1 Intractability: intractable Migraine type: periodic headache syndrome Polycythemia vera D45 Leukocytosis, unspecified type D72.829 Leukocytosis type: unspecified LFT elevation R79.89 Drinks beer Z78.9 Hypokalemia E87.6 Assessment & Plan Assessment & Plan (1) Encounter for general adult medical examination with abnormal findings: Code(s): Z00.01 - Encounter for general adult medical examination with abnormal findings Category: Medical (2) Diet-controlled diabetes mellitus: Code(s): E11.9 - Type 2 diabetes mellitus without complications Category: Medical (3) Asthma, moderate persistent: Code(s): J45.40 - Moderate persistent asthma, uncomplicated Category: Medical Qualifiers: Asthma complication type: uncomplicated Qualified Code(s): J45.40 - Moderate persistent asthma, uncomplicated (4) Hypertension, essential: Code(s): I10 - Essential (primary) hypertension Category: Medical (5) Migraine headache: Code(s): G43.909 - Migraine, unspecified, not intractable, without status migrainosus Category: Medical Qualifiers: Intractability: intractable Migraine type: periodic headache syndrome Qualified Code(s): G43.C1 - Periodic headache syndromes in child or adult, intractable (6) Polycythemia vera: Code(s): D45 - Polycythemia vera Category: Medical (7) Leukocytosis: Code(s): D72.829 - Elevated white blood cell count, unspecified Category: Medical Qualifiers: Leukocytosis type: unspecified Qualified Code(s): D72.829 - Elevated white blood cell count, unspecified (8) LFT elevation: Code(s): R79.89 - Other specified abnormal findings of blood chemistry Category: Medical (9) Drinks beer: Code(s): Z78.9 - Other specified health status Category: Social Hx (10) Hypokalemia: Code(s): E87.6 - Hypokalemia Category: Medical Plan History of Present Illness - The patient is a 39-year-old male presenting for a physical exam and routine follow-up. Pt has Hx polycythemia vera and leukocytosos, established with [employer] - Hypertension is managed with medications including atenolol and chlorthalidone. Blood pressure was noted as good during the current visit. - Asthma is currently reported as well-managed, with the patient taking Dulera and montelukast. - Allergies are presently stable; the patient is taking montelukast as part of the management. - The patient has been dealing with hair loss and is managing it with minoxidil; the treatment is reportedly effective. Through Dermatology - Headaches are treated with sumatriptan. - Gastroesophageal Reflux Disease (GERD) is managed with omeprazole - The patient's vitamin D levels are low, and supplementation is recommended. Health Maintenance - Last Tetanus vaccination was in 2018. - Pneumonia vaccine administered in 2020. - Potassium levels noted as slightly low, likely influenced by alcohol consumption. - The patient is advised to continue vitamin D supplementation daily, with an ongoing prescription for six months. - Regular blood test monitoring recommended, with the next test planned in four months. 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 - No job security issues discussed. Diagnostic results - Labs from November: - Complete Blood Count (CBC) normal - Kidney function normal - Liver enzymes, including alkaline phosphatase, were normal (38) - Low Vitamin D levels Patient Instructions - Continue taking all current medications as prescribed. - Take vitamin D supplements every day. - Be cautious with alcohol consumption as it can affect potassium levels. - Next blood test to be done four months from now, preferably fasting. - Return for follow-up in four months with completed blood tests. Orders: Orders Comprehensive [place]. Panel Fast 3 Months D45 - Polycythemia vera, D72.829 - Elevated white blood cell count, unspecified, E11.9 - Type 2 diabetes mellitus without complications, E87.6 - Hypokalemia, G43.C1 - Periodic headache syndromes in child or adult, intractable, I10 - Essential (primary) hypertension, J45.40 - Moderate persistent asthma, uncomplicated, R79.89 - Other specified abnormal findings of blood chemistry, Z78.9 - Other specified health status Lipid Panel 3 Months D45 - Polycythemia vera, D72.829 - Elevated white blood cell count, unspecified, E11.9 - Type 2 diabetes mellitus without complications, E87.6 - Hypokalemia, G43.C1 - Periodic headache syndromes in child or adult, intractable, I10 - Essential (primary) hypertension, J45.40 - Moderate persistent asthma, uncomplicated, R79.89 - Other specified abnormal findings of blood chemistry, Z78.9 - Other specified health status Complete Blood Count Auto Diff 3 Months D45 - Polycythemia vera, D72.829 - Elevated white blood cell count, unspecified, E11.9 - Type 2 diabetes mellitus without complications, E87.6 - Hypokalemia, G43.C1 - Periodic headache syndromes in child or adult, intractable, I10 - Essential (primary) hypertension, J45.40 - Moderate persistent asthma, uncomplicated, R79.89 - Other specified abnormal findings of blood chemistry, Z78.9 - Other specified health status Vitamin D 25-OH (D2 and D3) 3 Months D45 - Polycythemia vera, D72.829 - Elevated white blood cell count, unspecified, E11.9 - Type 2 diabetes mellitus without complications, E87.6 - Hypokalemia, G43.C1 - Periodic headache syndromes in child or adult, intractable, I10 - Essential (primary) hypertension, J45.40 - Moderate persistent asthma, uncomplicated, R79.89 - Other specified abnormal findings of blood chemistry, Z78.9 - Other specified health status Hemoglobin A1c Today E11.9 - Type 2 diabetes mellitus without complications Medications: New cholecalciferol (vitamin D3) 25 mcg PO DAILY 90 caps 1RF 90 days
[2025-02-25 12:27] VITALS: BP 118/76; PULSE 86; O2SAT 97; BMI 28.7
== END 2025-02-25 12:48 | disposition home or self-care (01) ==
LOC: HO.HMCC 12:19
PROVIDERS: PCP Internal Medicine; Visit Provider Internal Medicine
DX: Z00.01 Encounter for general adult medical examination with abnormal findings (principal); E11.9 Type 2 diabetes mellitus without complications; D45 Polycythemia vera; J45.40 Moderate persistent asthma, uncomplicated; I10 Essential (primary) hypertension; G43.C1 Periodic headache syndromes in child or adult, intractable; D72.829 Elevated white blood cell count, unspecified; R79.89 Other specified abnormal findings of blood chemistry; Z78.9 Other specified health status; E87.6 Hypokalemia

== ENCOUNTER → 2025-02-25 12:18 | Outpatient (BNVA) | payer OTHER, SELFPAY | PROVIDERS: PCP Internal Medicine; Visit Provider Internal Medicine | DX: Z00.01 Encounter for general adult medical examination with abnormal findings (principal); E11.9 Type 2 diabetes mellitus without complications; J45.40 Moderate persistent asthma, uncomplicated; I10 Essential (primary) hypertension; G43.C1 Periodic headache syndromes in child or adult, intractable; D45 Polycythemia vera; D72.829 Elevated white blood cell count, unspecified; R79.89 Other specified abnormal findings of blood chemistry; E87.6 Hypokalemia; K21.9 Gastro-esophageal reflux disease without esophagitis; Z79.899 Other long term (current) drug therapy; Z78.9 Other specified health status | CPT/HCPCS: 99212; 99396 ==

== ENCOUNTER 2025-06-30 06:06 | Outpatient (REF) | payer OTHER, SELFPAY ==
--- OUTSIDE RECORDS SUMMARY | 2023-11-27 20:00 | XMS_ITS | Continuity of Care Document ---
Author Organization [facility] Address [address] [place] [address] Care Team Providers Care Podiatric Surgeon Name Role Phone Tigre Damon MD Unavailable [...] Providers Copied on [facility]counter [facility], [address] [place] [address], [address], [facility] No Information 4 Marisol Landeros. [address] [place] [address], [id number], [place]. tel:[phone] Referring Provider: Tigre Damon, [address] [place] [address], [id number]. tel:[phone] [facility], [address] [place] [address], [address], [place] [facility] No Information 2 Gil Salazar. [address], [address], [place]. tel:[phone] Referring Provider: Marie Petersen, [address], [address]. tel:[phone] [facility], [address] [place] [address], [address], [place] [facility] No Information 2 Artemio Cedeño. [facility] [address], [address], [place]. tel:[phone] Referring Provider: Gala Schaefer, [address] [place] [address], [address]. tel:[phone] [facility], [address] [place], [address], [place] [facility] No Information 1 Roney Long. [address] [place] [address], [address], [place]. tel:[phone] Referring Provider: Ethan Sim, [address] [place] [address], [address]. tel:[phone] Family History Family Member Type Diagnosis Age At Onset No Information Payers Payer name Insurance type Covered constitution party ID Khris miner(s) [facility] [id number] Social History Type Description Quantity Date Captured [...]
--- OUTSIDE RECORDS SUMMARY | 2025-06-30 06:09 | XMS_ITS | Clinical Summary ---
Author Organization [facility] Address [address] [place] [id number] Phone Care Team Providers Care Hand Stemmer Name Role Phone Mike Talbot MD Primary Care Provider [phone] Allergies No known active allergies Medications albuterol sulfate (PROAIR HFA INHL) Ac tive budesonide/formote rol fumarate (SYMBICORT INHL) Act vazquez Active Problems Problem Noted Date Diagnosed Date Sacroiliitis, not elsewhere classified 9 Family History Medical History Relation Comments Cancer Mother 2 Diabetes mellitus Mother 2 Relation Status Comments Mother 1 Alive Mother 2 Social History Tobacco Use Types Packs/Day Years Used Date Smoking Tobacco: Never Assessed Education Answer Date Recorded Are you interested in more education? Not on pepito e 02/16/2023 Are you concerned about learning? Not on file 02/16/2023 No 02/16/2023 No 02/16/2023 Digital Access Answer Date Recorded No 03/17/2023 No 03/17/2023 Reliable internet access at home? Not on file 03/17/2023 Device with a working camera? Not on file Sex and Gender Information Value Date Recorded Sex Assigned at Not on file Legal Sex Male 10:28 PM EDT Gender Identity Not on file Sexual Orientation Not on file Last Filed Vital Signs Vital Sign Reading Time Taken Comments Blood Pressure 138/83 03/03/2019 11:08 AM EDT Pulse 84 03/03/2019 11:08 AM EDT Temperature - - Respiratory Rate - - Oxygen Saturation - - Inhaled Oxygen Concentration - - Weight 80.5 kg (177 lb 6.4 oz) 03/03/2019 11:08 AM EDT Height 165.1 cm (5' 5 ) 03/03/2019 11:08 AM EDT Body Mass Index 29.52 03/03/2019 11:08 AM EDT Plan of Treatment Health Maintenance Due Date Last Done Comments LIPID PANEL 1983 DEPRESSION SCREENING 1995 SMOKING Hx and SMOKELESS TOBACCO SCREENING 1996 HEPATITIS C SCREENING 2001 HIV ONE-TIME SCREENING (18-65 YEARS) 2001 INFLUENZA VACCINE (#1) 2025 0, 07/04/2019, 06/28/2017, Additional history exists COVID-19 VACCINE (2024- season) 2025 03/14/2021, 02/14/2021 Adult Td,Tdap Booster 06/25/2028 06/25/2018, 018 PNEUMOCOCCAL VACCINES (0-49 years) Aged Out 06/24/2020 No longer eligible based on patient's age to complete this topic HEPATITIS A VACCINES Aged Out No long er eligible based on patient's age to complete this topic HIB VACCINES Aged Out No longer eligi ble based on patient's age to complete this topic MENINGOCOCCAL VACCINES (ACWY) Aged Out No longer eligible based on patient's age to complete this topic MENINGOCOCCAL VACCINES (B) Aged Out N o longer eligible based on patient's age to complete this topic Medical Devices Not on file Insurance ACO ACO [place] [address] [place] [address] ACO ACO [employer] Care Teams Hand Stemmer Relationship Specialty Start Date End Date Mike Talbot MD [address] [place] [address] PCP - General 08/07/17 Additional Source Comments The information contained in this document represents components of the legal health record. It is not the complete legal health record.[facility]
--- OUTSIDE RECORDS SUMMARY | 2025-06-30 06:09 | XMS_ITS | Patient Health Record ---
Author Organization [facility] Address [address] [place] [address] Care Team Providers Care Continuum Of Care Manager Name Role Phone Mike Talbot MD Primary Care Provider Leonardo Brandt Jr Unavailable Reason For Referral No Information Medications Medication SIG (Take, Route, Fr equency, Duration) Notes Start Date End Date Status Amitriptyline HCl Ac tive ProAir HFA Active Montelukast Sodium A ctive Propranolol HCl Acti ve Omeprazole 20 MG 1 capsule Orally twi ce a day for 30 day(s) 07/13/2016 Active Symbicort Active Omeprazole 20 MG 1 capsule Orally Onc e a day for 30 Active Omeprazole 40 MG 1 capsule Orally Onc e a day for 30 day(s) 10/04/2016 Active Social History Tobacco Use: Social History Observation Description Date Details (start date - stop date) Never Smoker NA - NA Tobacco Use/Smoking Question Answer Notes Patient is a nonsmoker Alcohol Screen Question Answer Notes Did you have a drink contain ing alcohol in the past year? Yes How often did you have a dri nk containing alcohol in the past year? 2 to 4 times a month (2 points) How many drinks did you have on a typical day when you were drinking in the past year? 3 or 4 drinks (1 point) How often did you have 6 or more drinks on one occasion in the past year? Never (0 point) Points 3 Interpretation Negative Problems Problem Type SNOMED Code ICD Code Onset Dates Problem Status W/U Status Risk Notes Problem [id number] Epigastric abdominal pain (R10.13) Active confirmed Plan Of Treatment Future Test Test Name Order Date UPPER GI ENDOSCOPY 07/13/2016 Insurance Providers Payer Name Payer Address Payer Phone Subscriber Number Group Number Insured Name Patient Relationship to Insured Coverage Start Date Coverage End Date [facility] [address] [address] [place], [place] [id number] BOLA DANIELSON Self - patient is the insured Medical (General) History Medical History History ICD Code Denies [place],DM,CVA,renal disease asthma
[2025-06-30 10:06] LABS: MANUAL DIFF FLAG NO
[2025-06-30 10:11] LABS: Hematocrit 44.8 % (42.0-52.0); Hemoglobin 15.1 g/dl (14.0-18.0); Imm Gran Abs Auto 0.03 X10*3/uL (0.00-0.03); Imm Gran Pct Auto 0.4 % (0.0-0.4); Lymphocytes Absolute Auto 2.5 X10*3/uL (1.2-4.9); Mean Corpuscular HGB Conc 33.7 g/dl (31.0-36.0); Mean Corpuscular Hemoglobin 28.7 pg (27.0-33.0); Mean Corpuscular Volume 85.0 fL (80.0-98.0); NRBC Abs Auto 0.000 X10*3/uL (0.0-0.012); NRBC Pct Auto 0.0 /100WBC (0.0-0.2); Platelet Count 238 X10*3/uL (160-400); Red Blood Count 5.27 X10*6/uL (4.60-5.80); White Blood Count 7.0 X10*3/uL (4.8-10.8)
[2025-06-30 10:59] LABS: Alanine Aminotransferase 27 U/L (0-40); Albumin Level 4.2 g/dL (3.5-5.0); Alkaline Phosphatase 39 U/L (39-117); Anion Gap 16 (12-20); Aspartate Amino Transferase 27 U/L (5-37); Blood Urea Nitrogen 13 mg/dL (9-16); Calcium 9.0 mg/dL (8.4-10.2); Carbon Dioxide 25 mmol/L (22-29); Chloride 104 mmol/L (96-108); Cholesterol 191 mg/dL (<200); Estimated Glomerular Filt Rate > 60; HDL Cholesterol 38 mg/dL (>40); Potassium 3.9 mmol/L (3.3-5.1); Sodium 141 mmol/L (135-145); Total Protein 6.7 g/dL (6.5-8.0); Triglycerides 356 mg/dL (<150)
[2025-07-04 14:13] LABS: Vitamin D 25-OH, D2 <4 ng/mL; Vitamin D 25-OH, D3 33 ng/mL; Vitamin D 25-OH, Total 33 ng/mL (30-100)
== END 2025-06-30 06:07 | disposition home or self-care (01) ==
LOC: HO.HMGCLDS 06:06
PROVIDERS: PCP Internal Medicine; Visit Provider Internal Medicine
DX: E11.9 Type 2 diabetes mellitus without complications (principal); D45 Polycythemia vera; D72.829 Elevated white blood cell count, unspecified; I10 Essential (primary) hypertension; J45.40 Moderate persistent asthma, uncomplicated; G43.C1 Periodic headache syndromes in child or adult, intractable; R79.89 Other specified abnormal findings of blood chemistry; E87.6 Hypokalemia; Z78.9 Other specified health status; Z79.899 Other long term (current) drug therapy; E66.9 Obesity, unspecified; Z68.30 Body mass index [BMI] 30.0-30.9, adult
CPT/HCPCS: 36415; 80053; 80061; 82306; 85025; 99212

== ENCOUNTER 2025-06-30 12:38 | Outpatient (AMB) | payer OTHER, SELFPAY ==
--- OUTSIDE RECORDS SUMMARY | 2023-11-27 20:00 | XMS_ITS | Continuity of Care Document ---
Author Organization [facility] Address [address] [place] [address] Care Team Providers Care Anthropometrist Name Role Phone Tigre Damon MD Unavailable Unavailable Procedures Procedure Date Ecg-routine 12 Lead; Intrpt & 4 Ecg-routine 12 Lead; Intrpt & 2 Ecg-routine 12 Lead; Intrpt & 2 Ecg-routine 12 Lead; Intrpt & 1 Advance Directives Directive Yes / No Effective Date File Name No Information Encounters Encounter Description Practice Location Reason(s) For Visit Diagnoses Date Provider Providers Copied on [facility]counter [facility], [address] [place] [address], [address], [facility] No Information 4 Marisol Landeros. [address] [place] [address], [id number], [place]. tel:[phone] Referring Provider: Tigre Damon, [address] [place] [address], [id number]. tel:[phone] [facility], [address] [place] [address], [address], [place] [facility] No Information 2 Gil Salazar. [address], [address], [place]. tel:[phone] Referring Provider: Marie Petersen, [address], [address]. tel:[phone] [facility], [address] [place] [address], [address], [place] [facility] No Information 2 Artemio Cedeño. [facility] [address], [address], [place]. tel:[phone] Referring Provider: Gala Schaefer, [address] [place] [address], [address]. tel:[phone] [facility], [address] [place], [address], [place] [facility] No Information 1 Roney Long. [address] [place] [address], [address], [place]. tel:[phone] Referring Provider: Ethan Sim, [address] [place] [address], [address]. tel:[phone] Family History Family Member Type Diagnosis Age At Onset No Information Payers Payer name Insurance type Covered constitution party ID Khris miner(s) [facility] [id number] Social History Type Description Quantity Date Captured Comments Sex Male Smoking Status No Information Chief Complaint And Reason For Visit No Information Reason For Referral Reason For Referral No Information History Of Present Illness Encounter Date Complaint History Of Prese nt Illness No Information Functional Status Date Functional Assessmen t No Information Instructions Date Instruction Additional Infor mation No Information Assessments Type Assessment Date No Information Patient Care Teams Name Effective Dates (start - stop) Status Members No Information
[2025-06-30 12:41] VITALS: BP 118/78; PULSE 79; O2SAT 98
--- NOTE | 2025-06-30 12:41 | MHC.PC.OV ---
Vital Signs 06/30/25 12:41 Height 5 ft 5 in Weight 180 lb BMI 30.0 BP 118/78 Blood Pressure Location Lt brachial Position Sitting Pulse 79 Pulse Source Pulse Oximeter Pulse Oximetry (%) 98 Intake Visit Reasons: 4m f/u Allergies No Known Allergies Allergy (Verified 06/30/25 12:42) Medication List - Last Reconciled 06/30/25 by Linda Singh MD amitriptyline 100 mg PO BEDTIME 90 days atenolol-chlorthalidone 50-25 mg 1 tab PO DAILY [Blood pressure machine As directed] cholecalciferol (vitamin D3) 25 mcg PO DAILY 90 days minoxidil 2.5 mg PO DAILY mometasone-formoterol 200-5 mcg/actuation (Dulera) 2 puffs inhalation Q12H 30 days montelukast 10 mg PO DAILY 90 days omeprazole 20 mg PO DAILY 90 days sumatriptan succinate 50 mg PO BID PRN 90 days Ventolin HFA 90 mcg/actuation (albuterol sulfate) 1 inh inhalation QID PRN 30 days NS Tobacco use date assessed: 02/25/25 Dental Screening Dental Screen Date: 02/25/25 HPI 4m f/u HPI Details History of Present Illness The patient is a 40-year-old male presenting for a 4-month follow-up appointment. Polycythemia Vera: - Patient has been diagnosed with polycythemia vera. - stable at this time CBC within normal limit Hypertension: Blood pressure is stable patient is taking his medications no side effects Asthma is stable patient is on maintenance inhaler and is taking it regularly no side effects Allergies are stable as well he is to continue montelukast 10 mg daily. Medical History: - Polycythemia Vera - Asthma - Allergic Rhinitis - Gastroesophageal Reflux Disease (GERD) - hypertension - obesity Medications: - Amitriptyline 100 mg at night ? for an unspecified condition - Chlorothalidone 50-20 ? specifics not detailed - Vitamin D supplement ? specifics not detailed - Minoxidil ? for alopecia (hair loss) - Dulera ? for asthma control - Montelukast ? for allergies and asthma - Omeprazole 20 mg ? for GERD - Sumatriptan 50 mg as needed ? for migraine Diagnostic Results: - Recent CBC shows normal complete blood count - Electrolytes within normal limits - Kidney functions are stable - Fasting blood sugar: 126 - Liver enzymes are stable - LDL Cholesterol: 82 - Vitamin D levels are pending Problem List - Polycythemia Vera - Asthma - Allergic Rhinitis - Gastroesophageal Reflux Disease (GERD) - obesity Patient Instructions - Continue taking prescribed medications as discussed. - Have the pharmacy contact for medication refills as needed. - Return for follow-up in 4 months. Review of Systems - General: No fever no chills - Neurological: No headaches no dizziness - Ear nose throat: No sore throat no hearing difficulty no ear pain - Cardiovascular: No syncope, no chest pain, no palpitations - Gastrointestinal: No nausea vomiting or diarrhea - Endocrine: No polyuria polydipsia no heat intolerance - Genitourinary: No dysuria , no blood in urine Physical Exam General: No acute distress HEENT: No acute findings Neck: Supple Respiratory system: Able to talk in full sentences, no audible wheeze Cardiovascular: S1-S2 regular in rate and rhythm, blood pressure is 118/78 Gastrointestinal: No pain, no nausea, vomiting Extremities: No new findings, no swelling [employer]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 Sister No problems noted. Daughter No problems noted. Social History Household Members: Spouse Housing: Apartment Are you a primary home care chaplain to a significant other at home: No Do you presently have visiting nurse or other home services: No Alcohol intake: current Alcohol intake frequency: holidays/special occasions only Patient Tobacco Use Status: Never used Tobacco e-Cigarette/Vaping Use: Never Used Second Hand Smoke Exposure: No service: No Current occupational status: employed Cognitive needs: No Hearing needs: No Vision needs: No Questionnaire Thrive Questionnaire Date Thrive assessed: 02/25/25 I am a: Patient What is your living situation today?: I have a steady place to live Within the past 12 months, did the food you bought not last and you didn't have the money to get more?: Never true Within the past 12 months, did you worry whether your food would run out before you got money to buy more?: Never true Do you have trouble paying for medicines?: No Do you have trouble getting transportation to medical appointments?: No Do you have trouble paying your heating and electricity bill?: No Do you have trouble taking care of your child, family member or friend?: No Do you have trouble with day-to-day activities such as bathing, preparing meals, shopping, managing finances, etc.?: No Are you currently unemployed and looking for a job?: No Are you interested in more education?: No Please select the resources that you would like help with: None Currently or been in a relationship where the following occur: No concerns reported THRIVE Score: 0 BONNIE-7 AMB Questionnaire BONNIE-7 Date BONNIE - 7 assessed: 11/25/24 Source: Developed by Drs. Agustin Lemus, Joslyn Bailey, Lionel Brothers and colleagues, with an educational juan daniel from [employer]. Physical exam (Primary Care) Vital Signs: Last Vital Signs Pulse 79 06/30/25 12:41 BP 118/78 06/30/25 12:41 Pulse Ox 98 06/30/25 12:41 BMI result Body Mass Index 30.0 Tobacco/Smoking Status: Tobacco use Status Tobacco use date assessed 02/25/25 06/30/25 12:45 Patient Tobacco Use Status Never used Tobacco 06/30/25 12:45 e-Cigarette/Vaping Use Never Used 06/30/25 12:45 Thrive Assessment: Date of Thrive Assessment Date Thrive assessed 02/25/25 06/30/25 12:45 Currently or been in a relationship where the following occur: No concerns reported Coding Level of Care Code Est Pt Level 4 (97417) Complex EM visit Add On G2211 Diagnoses Diet-controlled diabetes mellitus E11.9 Moderate persistent asthma without complication J45.40 Asthma complication type: uncomplicated Hypertension, essential I10 Intractable periodic headache syndrome G43.C1 Migraine type: periodic headache syndrome Intractability: intractable Polycythemia vera D45 Obesity (BMI 30.0-34.9) E66.9 Assessment & Plan Assessment & Plan (1) Diet-controlled diabetes mellitus: Code(s): E11.9 - Type 2 diabetes mellitus without complications Category: Medical (2) Asthma, moderate persistent: Code(s): J45.40 - Moderate persistent asthma, uncomplicated Category: Medical Qualifiers: Asthma complication type: uncomplicated Qualified Code(s): J45.40 - Moderate persistent asthma, uncomplicated (3) Hypertension, essential: Code(s): I10 - Essential (primary) hypertension Category: Medical (4) Migraine headache: Code(s): G43.909 - Migraine, unspecified, not intractable, without status migrainosus Category: Medical Qualifiers: Migraine type: periodic headache syndrome Intractability: intractable Qualified Code(s): G43.C1 - Periodic headache syndromes in child or adult, intractable (5) Polycythemia vera: Code(s): D45 - Polycythemia vera Category: Medical (6) Obesity (BMI 30.0-34.9): Code(s): E66.9 - Obesity, unspecified Category: Medical Plan History of Present Illness The patient is a 40-year-old male presenting for a 4-month follow-up appointment. Has a history of diet controlled diabetes and migraine headaches along with asthma and hypertension History of polycythemia vera and GERD Polycythemia Vera: - Patient has been diagnosed with polycythemia vera. - stable at this time CBC within normal limit Hypertension: Blood pressure is stable patient is taking his medications no side effects Asthma is stable patient is on maintenance inhaler and is taking it regularly no side effects Allergies are stable as well he is to continue montelukast 10 mg daily. Medical History: - Polycythemia Vera - Asthma - Allergic Rhinitis - Gastroesophageal Reflux Disease (GERD) - hypertension - obesity Medications: - Amitriptyline 100 mg at night ? for an unspecified condition - Chlorothalidone 50-20 ? specifics not detailed - Vitamin D supplement ? specifics not detailed - Minoxidil ? for alopecia (hair loss) - Dulera ? for asthma control - Montelukast ? for allergies and asthma - Omeprazole 20 mg ? for GERD - Sumatriptan 50 mg as needed ? for migraine Diagnostic Results: - Recent CBC shows normal complete blood count - Electrolytes within normal limits - Kidney functions are stable - Fasting blood sugar: 126 - Liver enzymes are stable - LDL Cholesterol: 82 - Vitamin D levels are pending Problem List - Polycythemia Vera - Asthma - Allergic Rhinitis - Gastroesophageal Reflux Disease (GERD) - obesity Patient Instructions - Continue taking prescribed medications as discussed. - Have the pharmacy contact for medication refills as needed. - Return for follow-up in 4 months. Orders: Orders Hemoglobin A1c 3 Months D45 - Polycythemia vera, E11.9 - Type 2 diabetes mellitus without complications, E66.9 - Obesity, unspecified, G43.C1 - Periodic headache syndromes in child or adult, intractable, I10 - Essential (primary) hypertension, J45.40 - Moderate persistent asthma, uncomplicated Complete Blood Count Auto Diff 3 Months D45 - Polycythemia vera, E11.9 - Type 2 diabetes mellitus without complications, E66.9 - Obesity, unspecified, G43.C1 - Periodic headache syndromes in child or adult, intractable, I10 - Essential (primary) hypertension, J45.40 - Moderate persistent asthma, uncomplicated Comprehensive Met. Panel 3 Months D45 - Polycythemia vera, E11.9 - Type 2 diabetes mellitus without complications, E66.9 - Obesity, unspecified, G43.C1 - Periodic headache syndromes in child or adult, intractable, I10 - Essential (primary) hypertension, J45.40 - Moderate persistent asthma, uncomplicated
--- OUTSIDE RECORDS SUMMARY | 2025-06-30 15:00 | XMS_ITS | Clinical Summary ---
Author Organization [facility] Address [address] [place] [phone] Phone Care Team Providers Care Forensics Analyst Name Role Phone Mike Talbot MD Primary Care Provider Allergies No known active allergies Medications albuterol [...] file Insurance ACO [place] [address] [place] [address] ACO ACO [facility] ACO Care Teams Forensics Analyst Relationship Specialty Start Date End Date Mike Talbot MD [address] [place] [id number] PCP - General 08/07/17 Additional Source Comments The information contained in this document represents components of the legal health record. It is not the complete legal health record.[facility]
== END 2025-06-30 13:10 | disposition home or self-care (01) ==
LOC: HO.HMCC 12:38
PROVIDERS: PCP Internal Medicine; Visit Provider Internal Medicine
DX: E11.9 Type 2 diabetes mellitus without complications (principal); D45 Polycythemia vera; E66.9 Obesity, unspecified; Z68.30 Body mass index [BMI] 30.0-30.9, adult; J45.40 Moderate persistent asthma, uncomplicated; I10 Essential (primary) hypertension; G43.C1 Periodic headache syndromes in child or adult, intractable